=== PATIENT | female | born 1935 | race Caucasian/White ===

== ENCOUNTER 2016-03-30 22:28 | Emergency (ER) | payer MEDICARE ==
[~2016-03-30 22:28] MED LIST: /WARF25TA OR; ACET65TA OR; ASPI81TA7; ASPIRIN PO; AUGM500T34 OR; CHLORTRIMETON PO; COUM2TAB10 PO; FLAG500T PO; FLUT50SP; FLUTICASON; GLUCTAB PO; LEVO50TA2 OR; LEVOTHYROXINE PO; METAM; MILKSUS PO; MIRA3350 PO; MIRALEX OR; MUCI600T34 PO; MULTI PO; MULTIVIT OR; OMEP20TA7 OR; PERC5TAB8 OR; PERCOCET PO; PROAAER INH; SENO8.6T2 PO; SERT50TA2 OR; TUSSSUS2 OR; TYLE325T5 PO; VITA200016 PO; Vitamin D OR; [UNRECOGNIZED DRUG - CODE] EX; [UNRECOGNIZED DRUG - OTHER] PO; [UNRECOGNIZED DRUG - OTHER] SS; metamucil OR
[2016-03-30] MEDS ORDERED: KETOROLAC 30 MG/ML VIAL (J1885) As Ordered ONE (22:57)
[2016-03-31] MEDS ORDERED: MORPHINE 4 MG/ML 1ML SYRINGE As Ordered ONE (01:36)
--- NOTE | 2016-03-31 02:03 | EDDOCDS ---
Physician Documentation [facility] Name: Isabella Lombardi Age: 80 yrs Sex: Female : 1935 Arrival Date: 03/30/2016 Time: 22:28 Bed 11 Private MD: Harlan Feliz Disposition: 03/30/16 23:36 Discharged to Home/Self Care. Impression: Low back pain. - Condition is Stable. - Discharge Instructions: Back Pain, Adult. - Prescriptions for Naprosyn 500 mg Oral Tablet - take 1 tablet by ORAL route 2 times per day take with food; 30 tablet. Zanaflex 4 mg Oral Tablet - take 1 tablet by ORAL route every 8 hours As needed; 20 tablet. - Medication Reconciliation, Local Pharmacy Hours form. - Follow up: Harlan Feliz; When: 4 - 5 days; Reason: Recheck today's complaints, Continuance of care. - Problem is an acute exacerbation. - Symptoms are unchanged. Historical: - Allergies: Percocet; red ants; SULFA (SULFONAMIDES); Ditropan; Carafate; Propantheline [place]; Augmentin; Omeprazole; Zyrtec; - Home Meds: 1. levothyroxine 50 mcg Oral cap 1 cap once daily 2. fluticasone daily 3. albuterol sulfate 2.5 mg /3 mL (0.083 %) Inhl nebu 3 mL 3 times per day 4. meloxicam 15 mg oral tab 1 tab once daily 5. Vesicare 5 mg oral tab 6. aspirin 81 mg Oral tab 1 tab once daily 7. Vitamin D Oral 1,000 unit daily 8. lutein 20 mg oral cap 9. biotin 10,000 mcg oral cap daily 10. Acidophilus 500 million cell Oral tab 11. benefiber - PMHx: Hypothyroidism; Cataracts; pericardial cyst; Anxiety; Degenerative disc disease; - PSHx: hip replacement - bilateral; ortho surgery; back surgery; hip replacement- bilateral; Carpal Tunnel Repair- Bilateral; trigger finger; Hysterectomy; eyelid sx bilateral; - Social history: Smoking status: Patient states was never smoker of tobacco. No barriers to communication noted, The patient speaks fluent Tajik. - Family history: Not pertinent. - : The pt / caregiver states he / she is not on anticoagulants. Home medication list is obtained from the patient. - Exposure Risk Screening:: None identified. Vital Signs: 03/30 22:35 BP 146 / 87 LA; Pulse 92; Resp 18; Temp 96.5(O); Pulse Ox 95% on R/A; Weight 65.77 kg / af2 145 lbs (R); 23:39 BP 138 / 65; Pulse 108; Resp 18; Temp 96.9(O); Pulse Ox 95% on R/A; Pain 0/10; anni 03/31 02:00 BP 156 / 74; Pulse 107; Resp 20; Temp 97.2(TE); Pulse Ox 95% on R/A; Pain 0/10; jmv MDM: 03/30 22:46 ketorolac 30 mg IM once ordered. bhumika 22:46 Diazepam 10 mg IM once ordered. bhumika 03/31 00:01 Spine, Lumbosacral, Partial Ordered. EDMS 00:37 [facility] Payment Agreement was scanned into [employer] and attached to record. [facility] 00:[address] [facility] 01:29 morphine 4 mg IM once ordered. cs11 Administered Medications: 03/30 23:05 Drug: ketorolac 30 mg [ketorolac 30 mg/mL (1 mL) injection solution (1 mL)] Route: IM; af2 Site: left gluteus; 23:05 Drug: Diazepam 10 mg [diazepam 5 mg/mL injection syringe (2 mL)] Route: IM; Site: left af2 gluteus; 03/31 01:41 Drug: morphine 4 mg [morphine 4 mg/mL intravenous cartridge (1 mL)] Route: IM; Site: af2 left gluteus; Signatures: Dispatcher MedHost EDMS Rylan Wise, IT INFRASTRUCTURE MANAGER IT INFRASTRUCTURE MANAGER Jose Jacobo DO DO cs11 Marita Ivey RN RN af2 Bibi Ty The chart was reviewed and I authenticate all verbal orders and agree with the evaluation and treatment provided.Attachments: 00:37 [facility] Payment Agreement adelaide MTDD
--- NOTE | 2016-03-31 02:03 | EDDOCDS ---
Nurse's Notes [facility] Name: Isabella Lombardi Age: 80 yrs Sex: Female : 1935 Arrival Date: 03/30/2016 Time: 22:28 Bed 11 Private MD: Harlan Feliz Diagnosis: Low back pain Presentation: 03/30 22:36 Presenting complaint: EMS states: pt reports left lower back pain, states she was af2 taking nakul decorations down today- denies injury. Adult Sepsis Screening: The patient does not have new or worsening altered mentation. Patient's respiratory rate is less than 22. Systolic blood pressure is greater than 100. Patient has a qSOFA score of 0- Negative Sepsis Screen. Suicide/Homicide risk assessment- the patient denies having any suicidal and/or homicidal ideations and does not present with any other emotional, behavioral or mental health complaints. 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 Transition of care: patient was not received from another setting of care. 22:36 Acuity: DWAYNE Level 4 af2 22:36 Method Of Arrival: Ambulance af2 Triage Assessment: 22:44 General: Appears in no apparent distress, comfortable, Behavior is appropriate for age, af2 cooperative. Pain: Location: back Pain currently is 0 out of 10 on a pain scale. The patient is triaged at the bedside. See Assessment in Nurses Notes section of ED record. Neurological: Level of Consciousness is awake, alert, obeys commands, Oriented to person, place, time. Respiratory: Airway is patent Respiratory effort is even, unlabored. Derm: Skin is normal. Historical: - Allergies: Percocet; red ants; SULFA (SULFONAMIDES); Ditropan; Carafate; Propantheline [place]; Augmentin; Omeprazole; Zyrtec; - Home Meds: 1. levothyroxine 50 mcg Oral cap 1 cap once daily 2. fluticasone daily 3. albuterol sulfate 2.5 mg /3 mL (0.083 %) Inhl nebu 3 mL 3 times per day 4. meloxicam 15 mg oral tab 1 tab once daily 5. Vesicare 5 mg oral tab 6. aspirin 81 mg Oral tab 1 tab once daily 7. Vitamin D Oral 1,000 unit daily 8. lutein 20 mg oral cap 9. biotin 10,000 mcg oral cap daily 10. Acidophilus 500 million cell Oral tab 11. benefiber - PMHx: Hypothyroidism; Cataracts; pericardial cyst; Anxiety; Degenerative disc disease; - PSHx: hip replacement - bilateral; ortho surgery; back surgery; hip replacement- bilateral; Carpal Tunnel Repair- Bilateral; trigger finger; Hysterectomy; eyelid sx bilateral; - Social history: Smoking status: Patient states was never smoker of tobacco. No barriers to communication noted, The patient speaks fluent Qatari. - Family history: Not pertinent. - : The pt / caregiver states he / she is not on anticoagulants. Home medication list is obtained from the patient. - Exposure Risk Screening:: None identified. Screenin:45 Screening information is obtained from the patient. Fall risk: No risks identified. af2 Assistance ADL's: requires no assistance with activities of daily living. Abuse/DV Screen: The patient / caregiver reports he/she is: not in a situation that causes fear, pain or injury. Nutritional screening: No deficits noted. Advance Directives: There is an active DNR order. home support is adequate. Assessment: 03/31 00:02 General: see triage note. 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 . 01:17 General: pt out to desk and states "she's in so much pain, I'm scared to take af2 her home." provider notified and to bedside to examine pt. pt noted to be resting in upright position, no facial grimace or guarding noted.. Vital Signs: 03/30 22:35 BP 146 / 87 LA; Pulse 92; Resp 18; Temp 96.5(O); Pulse Ox 95% on R/A; Weight 65.77 kg af2 (R); 23:39 BP 138 / 65; Pulse 108; Resp 18; Temp 96.9(O); Pulse Ox 95% on R/A; Pain 0/10; anni 03/31 02:00 BP 156 / 74; Pulse 107; Resp 20; Temp 97.2(TE); Pulse Ox 95% on R/A; Pain 0/10; jmv Vitals: 03/30 22:35 Log In Time N/A - ambulance arrival. af2 ED Course: 22:29 Patient visited by Emani Aponte PCA. tmm1 22:29 Harlan Feliz is Private Physician. tmm1 22:29 Patient moved to Waiting tmm1 22:30 Marita Ivey RN is Primary Nurse. tmm1 22:30 Patient moved to 11 tmm1 22:31 [facility]. ke 22:31 Patient visited by Rylan Wise FNP. ke 22:31 Patient visited by Rylan Wise FNP. ke 22:37 Triage Initiated af2 22:45 Patient visited by Marita Ivey RN. af2 22:45 The patient / caregiver is instructed regarding the plan of care and ED course. Patient af2 has correct armband on for positive identification. Placed in gown. 22:45 No IV's were initiated during this patient's visit. No procedures done that require af2 assistance. 23:18 Patient visited by Rylan Wise FNP. ke 23:35 Harlan Feliz is Referral Physician. ke 23:39 Patient visited by Jeanne Lerma PCA. anni 03/31 00:04 Patient visited by Marita Ivey RN. af2 00:37 [facility] Payment Agreement was scanned into [employer] and attached to record. lja 01:19 Patient visited by Marita Ivey RN. af2 02:01 Patient visited by Yasmani Barksdale PCA. greer Administered Medications: 03/30 23:05 Drug: ketorolac 30 mg [ketorolac 30 mg/mL (1 mL) injection solution (1 mL)] Route: IM; af2 Site: left gluteus; 23:05 Drug: Diazepam 10 mg [diazepam 5 mg/mL injection syringe (2 mL)] Route: IM; Site: left af2 gluteus; 03/31 01:41 Drug: morphine 4 mg [morphine 4 mg/mL intravenous cartridge (1 mL)] Route: IM; Site: af2 left gluteus; Order Results: There are currently no results for this order. Outcome: 03/30 23:36 Discharge ordered by Provider. ke 03/31 02:01 Discharge Assessment: Patient awake, alert and oriented x 3. No cognitive and/or af2 functional deficits noted. Patient verbalized understanding of disposition instructions. patient administered narcotics - no. Discharge Assessment: Patient awake, alert and oriented x 3. No cognitive and/or functional deficits noted. Patient verbalized understanding of disposition instructions. patient administered narcotics - yes. Pt provided with safe discharge. The following High Risk Discharge criteria are identified: None. Discharged to home via wheelchair, with family. Condition: stable. Discharge instructions given to patient, significant other, Instructed on discharge instructions, follow up and referral plans. medication usage, no driving heavy equipment, no drinking with medication, Demonstrated understanding of instructions, medications, Pt was receptive of discharge instructions/ teaching. No special radiology studies were completed. Property :Personal belongings accompany Pt. 02:02 Patient left the ED. af2 Signatures: Rylan Wise, CHAMBER OF COMMERCE DIVISION MANAGER CHAMBER OF COMMERCE DIVISION MANAGER Jeanne Giang, GLOVE CUFFER GLOVE CUFFER anni Emani Aponte, GLOVE CUFFER GLOVE CUFFER tmm1 Marita Ivey,MATTEO RN af2 Arel, Yasmani Oseguera, GLOVE CUFFER GLOVE CUFFER jmv LILLIAN
--- NOTE | 2016-03-31 09:44 | REP ---
Clinical: Pain. Technique: AP, lateral, coned-down views of the lumbosacral spine. Findings: Alignment and lordosis is maintained. There is no evidence for acute fracture / compression injury or subluxation. Moderate to advanced multilevel degenerative changes include osteophytosis, endplate sclerosis, disc space narrowing and hypertrophic facet changes. Impression: Moderate to advanced multilevel degenerative changes. Signed by Alber Hernandez MD 03/31/2016 09:35 A
--- NOTE | 2016-04-02 03:04 | EDDOCDS ---
Nurse's Notes [facility] Name: Isabella Lombardi Age: 80 yrs Sex: Female : 1935 Arrival Date: 03/30/2016 Time: 22:28 Bed 11 Private MD: Harlan Feliz Diagnosis: Low back pain Presentation: 03/30 22:36 Presenting complaint: EMS states: pt reports left lower back pain, states she was af2 taking nakul decorations down today- denies injury. Adult Sepsis Screening: The patient does not have new or worsening altered mentation. Patient's respiratory rate is less than 22. Systolic blood pressure is greater than 100. Patient has a qSOFA score of 0- Negative Sepsis Screen. Suicide/Homicide risk assessment- the patient denies having any suicidal and/or homicidal ideations and does not present with any other emotional, behavioral or mental health complaints. Status: Patient is not a public message service supervisor or dependent. Transition of care: patient was not received from another setting of care. 22:36 Acuity: DWAYNE Level 4 af2 22:36 Method Of Arrival: Ambulance af2 Triage Assessment: 22:44 General: Appears in no apparent distress, comfortable, Behavior is appropriate for age, af2 cooperative. Pain: Location: back Pain currently is 0 out of 10 on a pain scale. The patient is triaged at the bedside. See Assessment in Nurses Notes section of ED record. Neurological: Level of Consciousness is awake, alert, obeys commands, Oriented to person, place, time. Respiratory: Airway is patent Respiratory effort is even, unlabored. Derm: Skin is normal. Historical: - Allergies: Percocet; red ants; SULFA (SULFONAMIDES); Ditropan; Carafate; Propantheline [place]; Augmentin; Omeprazole; Zyrtec; - Home Meds: 1. levothyroxine 50 mcg Oral cap 1 cap once daily 2. fluticasone daily 3. albuterol sulfate 2.5 mg /3 mL (0.083 %) Inhl nebu 3 mL 3 times per day 4. meloxicam 15 mg oral tab 1 tab once daily 5. Vesicare 5 mg oral tab 6. aspirin 81 mg Oral tab 1 tab once daily 7. Vitamin D Oral 1,000 unit daily 8. lutein 20 mg oral cap 9. biotin 10,000 mcg oral cap daily 10. Acidophilus 500 million cell Oral tab 11. benefiber - PMHx: Hypothyroidism; Cataracts; pericardial cyst; Anxiety; Degenerative disc disease; - PSHx: hip replacement - bilateral; ortho surgery; back surgery; hip replacement- bilateral; Carpal Tunnel Repair- Bilateral; trigger finger; Hysterectomy; eyelid sx bilateral; - Social history: Smoking status: Patient states was never smoker of tobacco. No barriers to communication noted, The patient speaks fluent Omani. - Family history: Not pertinent. - : The pt / caregiver states he / she is not on anticoagulants. Home medication list is obtained from the patient. - Exposure Risk Screening:: None identified. Screenin:45 Screening information is obtained from the patient. Fall risk: No risks identified. af2 Assistance ADL's: requires no assistance with activities of daily living. Abuse/DV Screen: The patient / caregiver reports he/she is: not in a situation that causes fear, pain or injury. Nutritional screening: No deficits noted. Advance Directives: There is an active DNR order. home support is adequate. Assessment: 03/31 00:02 General: see triage note. 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 . 01:17 General: pt out to desk and states "she's in so much pain, I'm scared to take af2 her home." provider notified and to bedside to examine pt. pt noted to be resting in upright position, no facial grimace or guarding noted.. Vital Signs: 03/30 22:35 BP 146 / 87 LA; Pulse 92; Resp 18; Temp 96.5(O); Pulse Ox 95% on R/A; Weight 65.77 kg af2 (R); 23:39 BP 138 / 65; Pulse 108; Resp 18; Temp 96.9(O); Pulse Ox 95% on R/A; Pain 0/10; anni 03/31 02:00 BP 156 / 74; Pulse 107; Resp 20; Temp 97.2(TE); Pulse Ox 95% on R/A; Pain 0/10; jmv Vitals: 03/30 22:35 Log In Time N/A - ambulance arrival. af2 ED Course: 22:29 Patient visited by Emani Aponte, CINDY. tmm1 22:29 Harlan Feliz is Private Physician. tmm1 22:29 Patient moved to Waiting tmm1 22:30 Marita Ivey RN is Primary Nurse. tmm1 22:30 Patient moved to 11 tmm1 22:31 [facility] ke 22:31 Patient visited by Rylan Wise FNP. ke 22:31 Patient visited by Rylan Wise FNP. ke 22:37 Triage Initiated af2 22:45 Patient visited by Marita Ivey RN. af2 22:45 The patient / caregiver is instructed regarding the plan of care and ED course. Patient af2 has correct armband on for positive identification. Placed in gown. 22:45 No IV's were initiated during this patient's visit. No procedures done that require af2 assistance. 23:18 Patient visited by Rylan Wise FNP. ke 23:35 Harlan Feliz is Referral Physician. ke 23:39 Patient visited by Jeanne Lerma PCA. anni 03/31 00:04 Patient visited by Marita Ivey RN. af2 00:37 [facility] Payment Agreement was scanned into [employer] and attached to record. lja 01:19 Patient visited by Marita Ivey RN. af2 02:01 Patient visited by Yasmani Barksdale PCA. greer 06:06 T-Sheet-- Draft Copy was scanned into [employer] and attached to record. hs2 09:56 Spine, Lumbosacral, Partial Returned. EDMS 14:20 PCR was scanned into [employer] and attached to record. gb Administered Medications: 03/30 23:05 Drug: ketorolac 30 mg [ketorolac 30 mg/mL (1 mL) injection solution (1 mL)] Route: IM; af2 Site: left gluteus; 23:05 Drug: Diazepam 10 mg [diazepam 5 mg/mL injection syringe (2 mL)] Route: IM; Site: left af2 gluteus; 03/31 01:41 Drug: morphine 4 mg [morphine 4 mg/mL intravenous cartridge (1 mL)] Route: IM; Site: af2 left gluteus; Order Results: Radiology Order: Spine, Lumbosacral, Partial Test: Spine, Lumbosacral, Partial REASON FOR EXAMINATION: pain; Clinical: Pain.; ; Technique: AP, lateral, coned-down views of the lumbosacral spine.; ; Findings: Alignment and lordosis is maintained. There is no evidence for acute; fracture / compression injury or subluxation. Moderate to advanced multilevel; degenerative changes include osteophytosis, endplate sclerosis, disc space; narrowing and hypertrophic facet changes.; ; Impression:; Moderate to advanced multilevel degenerative changes.; ; ; Signed by; Alber Hernandez MD 03/31/2016 09:35 A; Outcome: 03/30 23:36 Discharge ordered by Provider. bhumika 03/31 02:01 Discharge Assessment: Patient awake, alert and oriented x 3. No cognitive and/or af2 functional deficits noted. Patient verbalized understanding of disposition instructions. patient administered narcotics - no. Discharge Assessment: Patient awake, alert and oriented x 3. No cognitive and/or functional deficits noted. Patient verbalized understanding of disposition instructions. patient administered narcotics - yes. Pt provided with safe discharge. The following High Risk Discharge criteria are identified: None. Discharged to home via wheelchair, with family. Condition: stable. Discharge instructions given to patient, significant other, Instructed on discharge instructions, follow up and referral plans. medication usage, no driving heavy equipment, no drinking with medication, Demonstrated understanding of instructions, medications, Pt was receptive of discharge instructions/ teaching. No special radiology studies were completed. Property :Personal belongings accompany Pt. 02:02 Patient left the ED. af2 Signatures: Dispatcher MedHost EDMS Brooke Palma, Reg Reg gb Rylan Wise, PAPERHANGER SUPERVISOR PAPERHANGER SUPERVISOR Jeanne Giang, SOFT WORK CIGAR MACHINE OPERATOR SOFT WORK CIGAR MACHINE OPERATOR anni Emani Aponte, SOFT WORK CIGAR MACHINE OPERATOR SOFT WORK CIGAR MACHINE OPERATOR [email or web address] Marita Ivey,RN RN af2 Pawell, Jolie Mccoy, Reg Reg hs2 Yasmani Barksdale, SOFT WORK CIGAR MACHINE OPERATOR SOFT WORK CIGAR MACHINE OPERATOR jmv Chart Complete MTDD
--- NOTE | 2016-04-02 03:04 | EDDOCDS ---
Physician Documentation [facility] Name: Isabella Lombardi Age: 80 yrs Sex: Female : 1935 Arrival Date: 03/30/2016 Time: 22:28 Bed 11 Private MD: Harlan Feliz Disposition: 03/30/16 23:36 Discharged to Home/Self Care. Impression: Low back pain. - Condition is Stable. - Discharge Instructions: Back Pain, Adult. - Prescriptions for Naprosyn 500 mg Oral Tablet - take 1 tablet by ORAL route 2 times per day take with food; 30 tablet. Zanaflex 4 mg Oral Tablet - take 1 tablet by ORAL route every 8 hours As needed; 20 tablet. - Medication Reconciliation, Local Pharmacy Hours form. - Follow up: Harlan Feliz; When: 4 - 5 days; Reason: Recheck today's complaints, Continuance of care. - Problem is an acute exacerbation. - Symptoms are unchanged. Historical: - Allergies: Percocet; red ants; SULFA (SULFONAMIDES); Ditropan; Carafate; Propantheline [place]; Augmentin; Omeprazole; Zyrtec; - Home Meds: 1. levothyroxine 50 mcg Oral cap 1 cap once daily 2. fluticasone daily 3. albuterol sulfate 2.5 mg /3 mL (0.083 %) Inhl nebu 3 mL 3 times per day 4. meloxicam 15 mg oral tab 1 tab once daily 5. Vesicare 5 mg oral tab 6. aspirin 81 mg Oral tab 1 tab once daily 7. Vitamin D Oral 1,000 unit daily 8. lutein 20 mg oral cap 9. biotin 10,000 mcg oral cap daily 10. Acidophilus 500 million cell Oral tab 11. benefiber - PMHx: Hypothyroidism; Cataracts; pericardial cyst; Anxiety; Degenerative disc disease; - PSHx: hip replacement - bilateral; ortho surgery; back surgery; hip replacement- bilateral; Carpal Tunnel Repair- Bilateral; trigger finger; Hysterectomy; eyelid sx bilateral; - Social history: Smoking status: Patient states was never smoker of tobacco. No barriers to communication noted, The patient speaks fluent Vietnamese. - Family history: Not pertinent. - : The pt / caregiver states he / she is not on anticoagulants. Home medication list is obtained from the patient. - Exposure Risk Screening:: None identified. Vital Signs: 03/30 22:35 BP 146 / 87 LA; Pulse 92; Resp 18; Temp 96.5(O); Pulse Ox 95% on R/A; Weight 65.77 kg / af2 145 lbs (R); 23:39 BP 138 / 65; Pulse 108; Resp 18; Temp 96.9(O); Pulse Ox 95% on R/A; Pain 0/10; anni 03/31 02:00 BP 156 / 74; Pulse 107; Resp 20; Temp 97.2(TE); Pulse Ox 95% on R/A; Pain 0/10; jmv MDM: 03/30 22:46 ketorolac 30 mg IM once ordered. ke 22:46 Diazepam 10 mg IM once ordered. ke 03/31 00:01 Spine, Lumbosacral, Partial Ordered. EDMS 00:37 [facility] Payment Agreement was scanned into Snappy [employer] and attached to record. a 00:37 Financial registration complete. lja 01:29 morphine 4 mg IM once ordered. cs11 06:06 T-Sheet-- Draft Copy was scanned into Snappy shuttle and attached to record. hs2 14:20 PCR was scanned into [employer] and attached to record. gb Administered Medications: 03/30 23:05 Drug: ketorolac 30 mg [ketorolac 30 mg/mL (1 mL) injection solution (1 mL)] Route: IM; af2 Site: left gluteus; 23:05 Drug: Diazepam 10 mg [diazepam 5 mg/mL injection syringe (2 mL)] Route: IM; Site: left af2 gluteus; 03/31 01:41 Drug: morphine 4 mg [morphine 4 mg/mL intravenous cartridge (1 mL)] Route: IM; Site: af2 left gluteus; Signatures: Dispatcher MedHost EDMS Brooke Palma, Reg Reg gb Rylan Wise, COMPLIANCE PARALEGAL COMPLIANCE PARALEGAL Jose Jacobo DO DO cs11 Marita Ivey,MATTEO RN af2 Arel, Jolie Mccoy, Reg Reg hs2 The chart was reviewed and I authenticate all verbal orders and agree with the evaluation and treatment provided.Attachments: 00:37 [facility] Payment Agreement [facility] 06:06 T-Sheet-- Draft Copy hs2 Chart Complete MTDD
--- NOTE | 2016-04-02 03:04 | EDDOCDS ---
Physician Documentation [facility] Name: Isabella Lombardi Age: 80 yrs Sex: Female : 1935 Arrival Date: 03/30/2016 Time: 22:28 Bed 11 Private MD: Harlan Feliz Disposition: 03/30/16 23:36 Discharged to Home/Self Care. Impression: Low back pain. - Condition is Stable. - Discharge Instructions: Back Pain, Adult. - Prescriptions for Naprosyn 500 mg Oral Tablet - take 1 tablet by ORAL route 2 times per day take with food; 30 tablet. Zanaflex 4 mg Oral Tablet - take 1 tablet by ORAL route every 8 hours As needed; 20 tablet. - Medication Reconciliation, Local Pharmacy Hours form. - Follow up: Harlan Feliz; When: 4 - 5 days; Reason: Recheck today's complaints, Continuance of care. - Problem is an acute exacerbation. - Symptoms are unchanged. Historical: - Allergies: Percocet; red ants; SULFA (SULFONAMIDES); Ditropan; Carafate; Propantheline [place]; Augmentin; Omeprazole; Zyrtec; - Home Meds: 1. levothyroxine 50 mcg Oral cap 1 cap once daily 2. fluticasone daily 3. albuterol sulfate 2.5 mg /3 mL (0.083 %) Inhl nebu 3 mL 3 times per day 4. meloxicam 15 mg oral tab 1 tab once daily 5. Vesicare 5 mg oral tab 6. aspirin 81 mg Oral tab 1 tab once daily 7. Vitamin D Oral 1,000 unit daily 8. lutein 20 mg oral cap 9. biotin 10,000 mcg oral cap daily 10. Acidophilus 500 million cell Oral tab 11. benefiber - PMHx: Hypothyroidism; Cataracts; pericardial cyst; Anxiety; Degenerative disc disease; - PSHx: hip replacement - bilateral; ortho surgery; back surgery; hip replacement- bilateral; Carpal Tunnel Repair- Bilateral; trigger finger; Hysterectomy; eyelid sx bilateral; - Social history: Smoking status: Patient states was never smoker of tobacco. No barriers to communication noted, The patient speaks fluent Spanish. - Family history: Not pertinent. - : The pt / caregiver states he / she is not on anticoagulants. Home medication list is obtained from the patient. - Exposure Risk Screening:: None identified. Vital Signs: 03/30 22:35 BP 146 / 87 LA; Pulse 92; Resp 18; Temp 96.5(O); Pulse Ox 95% on R/A; Weight 65.77 kg / af2 145 lbs (R); 23:39 BP 138 / 65; Pulse 108; Resp 18; Temp 96.9(O); Pulse Ox 95% on R/A; Pain 0/10; anni 03/31 02:00 BP 156 / 74; Pulse 107; Resp 20; Temp 97.2(TE); Pulse Ox 95% on R/A; Pain 0/10; jmv MDM: 03/30 22:46 ketorolac 30 mg IM once ordered. ke 22:46 Diazepam 10 mg IM once ordered. ke 03/31 00:01 Spine, Lumbosacral, Partial Ordered. EDMS 00:37 [facility] Payment Agreement was scanned into [employer] and attached to record. a 00:37 Financial registration complete. lja 01:29 morphine 4 mg IM once ordered. cs11 06:06 T-Sheet-- Draft Copy was scanned into [employer] and attached to record. hs2 14:20 PCR was scanned into [employer] and attached to record. gb Administered Medications: 03/30 23:05 Drug: ketorolac 30 mg [ketorolac 30 mg/mL (1 mL) injection solution (1 mL)] Route: IM; af2 Site: left gluteus; 23:05 Drug: Diazepam 10 mg [diazepam 5 mg/mL injection syringe (2 mL)] Route: IM; Site: left af2 gluteus; 03/31 01:41 Drug: morphine 4 mg [morphine 4 mg/mL intravenous cartridge (1 mL)] Route: IM; Site: af2 left gluteus; Signatures: Dispatcher [employer] EDMS Brooke Palma, Reg Reg gb Rylan Wise, MACHINE SIZER MACHINE SIZER Jose Jacobo DO DO cs11 Marita Ivey,MATTEO RN af2 Arel, Jolie Mccoy, Reg Reg hs2 The chart was reviewed and I authenticate all verbal orders and agree with the evaluation and treatment provided.Attachments: 00:37 [facility] Payment Agreement [facility] 06:06 T-Sheet-- Draft Copy hs2 Chart Complete MTDD
== END 2016-03-31 02:02 | disposition home or self-care (01) ==
LOC: M ED 22:28
DX: S39.012A Strain of muscle, fascia and tendon of lower back, initial encounter (principal); X50.9XXA Other and unspecified overexertion or strenuous movements or postures, initial encounter; Y92.019 Unspecified place in single-family (private) house as the place of occurrence of the external cause; Y93.9 Activity, unspecified; Y99.9 Unspecified external cause status; E03.9 Hypothyroidism, unspecified; F41.9 Anxiety disorder, unspecified; M51.9 Unspecified thoracic, thoracolumbar and lumbosacral intervertebral disc disorder; Z96.643 Presence of artificial hip joint, bilateral; Z79.82 Long term (current) use of aspirin; Z79.899 Other long term (current) drug therapy; Z88.5 Allergy status to narcotic agent; Z91.89 Other specified personal risk factors, not elsewhere classified; Z88.2 Allergy status to sulfonamides; Z88.1 Allergy status to other antibiotic agents; Z88.8 Allergy status to other drugs, medicaments and biological substances
CPT/HCPCS: 72100; 96372; 99283; J1885; J3360

== ENCOUNTER → 2016-04-10 | Outpatient (CLI) | payer MEDICARE ==
[2016-04-10 12:52] LABS: COLLAGEN ADP 142 SECONDS (56-103)
== END ==
LOC: M LAB 10:47
PROVIDERS: ATTEND Ophthalmology
DX: H25.13 Age-related nuclear cataract, bilateral (principal)

== ENCOUNTER → 2016-06-10 | Outpatient (REF) | payer MEDICARE ==
[2016-06-10 14:04] LABS: MEAN CORPUSCULAR HEMOGLOBIN 33.3 pg (27.0-33.0); MEAN CORPUSCULAR VOLUME 97.8 fl (80.0-96.0); RED CELL DISTRIBUTION WIDTH 12.5 % (11.5-14.5); WHITE BLOOD COUNT 4.2 K/mm3 (4.0-10.0)
[2016-06-10 14:52] LABS: ALBUMIN 4.2 GM/DL (3.2-5.2); ALKALINE PHOSPHATASE 58 U/L (45-117); ALT/SGPT 15 U/L (12-78); ANION GAP 11 MEQ/L (8-16); AST/SGOT 14 U/L (15-37); BILIRUBIN,TOTAL 0.9 MG/DL (0.2-1.0); BLOOD UREA NITROGEN 11 MG/DL (7-18); CALCIUM LEVEL 9.2 MG/DL (8.8-10.2); CARBON DIOXIDE LEVEL 26 MEQ/L (21-32); CHLORIDE LEVEL 101 MEQ/L (98-107); CHOLESTEROL LEVEL 229 MG/DL (<200); GLOMERULAR FILTRATION RATE > 60.0 (>32); GLUCOSE, FASTING 83 MG/DL (83-110); POTASSIUM SERUM 4.2 MEQ/L (3.5-5.1); SODIUM LEVEL 138 MEQ/L (136-145); TRIGLYCERIDES LEVEL 68 MG/DL (<150)
== END ==
LOC: M SFHCPLAZ 09:23
PROVIDERS: ATTEND Internal Medicine
DX: K21.9 Gastro-esophageal reflux disease without esophagitis (principal); E78.00 Pure hypercholesterolemia, unspecified; E03.9 Hypothyroidism, unspecified

== ENCOUNTER → 2017-06-09 | Outpatient (REF) | payer MEDICARE ==
[2017-06-09 12:04] LABS: HEMATOCRIT 40.3 % (36.0-47.0); HEMOGLOBIN 13.8 g/dl (12.0-16.0); MEAN CORPUSCULAR HEMOGLOBIN 32.5 pg (27.0-33.0); MEAN CORPUSCULAR HGB CONC 34.2 g/dl (32.0-36.5); PLATELET COUNT, AUTOMATED 111 10^3/uL (150-450); RED BLOOD COUNT 4.24 10^6/uL (4.00-5.40); RED CELL DISTRIBUTION WIDTH 12.7 % (11.5-14.5); WHITE BLOOD COUNT 3.4 10^3/uL (4.0-10.0)
[2017-06-09 12:24] LABS: ALBUMIN 4.1 GM/DL (3.2-5.2); ALBUMIN/GLOBULIN RATIO 1.46 (1.00-1.93); ALKALINE PHOSPHATASE 54 U/L (45-117); ALT/SGPT 16 U/L (12-78); ANION GAP 10 MEQ/L (8-16); AST/SGOT 16 U/L (7-37); BILIRUBIN,TOTAL 0.7 MG/DL (0.2-1.0); BLOOD UREA NITROGEN 10 MG/DL (7-18); CALCIUM LEVEL 9.1 MG/DL (8.8-10.2); CARBON DIOXIDE LEVEL 27 MEQ/L (21-32); CHLORIDE LEVEL 101 MEQ/L (98-107); CHOLESTEROL LEVEL 214 MG/DL (<200); CHOLESTEROL RISK RATIO 2.118 (<5); CREATININE FOR GFR 0.78 MG/DL (0.55-1.30); GLOMERULAR FILTRATION RATE > 60.0 (>32); GLUCOSE, FASTING 88 MG/DL (70-100); HDL CHOLESTEROL 101 MG/DL (>40); LDL CHOLESTEROL 99.4 MG/DL (<100); NON-HDL-C 113 MG/DL; SODIUM LEVEL 138 MEQ/L (136-145); TOTAL PROTEIN 6.9 GM/DL (6.4-8.2); TRIGLYCERIDES LEVEL 68 MG/DL (<150)
[2017-06-09 12:44] LABS: TOTAL 25(OH) VITAMIN D 40.3 NG/ML (30.0-100.0)
== END ==
LOC: M SFHCPLAZ 09:08
DX: D69.6 Thrombocytopenia, unspecified (principal); E78.00 Pure hypercholesterolemia, unspecified; E03.9 Hypothyroidism, unspecified; E55.9 Vitamin D deficiency, unspecified
CPT/HCPCS: 84443

== ENCOUNTER → 2017-10-14 | Outpatient (CLI) | payer MEDICARE | LOC: M RAD 08:20 | DX: R10.11 Right upper quadrant pain (principal) | CPT/HCPCS: 76705 ==

== ENCOUNTER → 2017-10-19 | Outpatient (REF) | payer MEDICARE ==
[2017-10-22 15:06] LABS: BABESIOSIS LEVEL IGG <1:10 (Neg:<1:10); BABESIOSIS LEVEL IGM <1:10 (Neg:<1:10); Lyme Disease IgG/IgM Antibodie <0.91 ISR (0.00-0.90); Lyme Disease IgM Ab Quantitati <0.80 index (0.00-0.79)
== END ==
LOC: M SFHCPLAZ 09:31
DX: Z11.9 Encounter for screening for infectious and parasitic diseases, unspecified (principal); W57.XXXA Bitten or stung by nonvenomous insect and other nonvenomous arthropods, initial encounter; R21 Rash and other nonspecific skin eruption; Y92.89 Other specified places as the place of occurrence of the external cause
CPT/HCPCS: 86609

== ENCOUNTER → 2017-12-17 | Outpatient (REF) | payer MEDICARE ==
[2017-12-17 12:25] LABS: HEMATOCRIT 38.7 % (36.0-47.0); HEMOGLOBIN 13.2 g/dl (12.0-15.5); MEAN CORPUSCULAR HEMOGLOBIN 32.3 pg (27.0-33.0); MEAN CORPUSCULAR HGB CONC 34.1 g/dl (32.0-36.5); MEAN CORPUSCULAR VOLUME 94.6 fl (80.0-96.0); RED BLOOD COUNT 4.09 10^6/uL (4.00-5.40); RED CELL DISTRIBUTION WIDTH 12.9 % (11.5-14.5); WHITE BLOOD COUNT 3.8 10^3/uL (4.0-10.0)
[2017-12-17 12:30] LABS: IMMATURE PLATELET FRACTION % 10.4 % (0.0-9.6); PLATELET COUNT, AUTOMATED 96 10^3/uL (150-450)
[2017-12-17 13:51] LABS: ALBUMIN 4.1 GM/DL (3.2-5.2); ALBUMIN/GLOBULIN RATIO 1.64 (1.00-1.93); ALKALINE PHOSPHATASE 48 U/L (45-117); ALT/SGPT 19 U/L (12-78); ANION GAP 9 MEQ/L (8-16); AST/SGOT 12 U/L (7-37); BILIRUBIN,TOTAL 0.6 MG/DL (0.2-1.0); BLOOD UREA NITROGEN 7 MG/DL (7-18); CALCIUM LEVEL 9.3 MG/DL (8.8-10.2); CARBON DIOXIDE LEVEL 27 MEQ/L (21-32); CHLORIDE LEVEL 100 MEQ/L (98-107); CREATININE FOR GFR 0.63 MG/DL (0.55-1.30); GLOMERULAR FILTRATION RATE > 60.0 (>32); GLUCOSE, FASTING 88 MG/DL (70-100); POTASSIUM SERUM 4.4 MEQ/L (3.5-5.1); SODIUM LEVEL 136 MEQ/L (136-145); TOTAL PROTEIN 6.6 GM/DL (6.4-8.2)
== END ==
LOC: M SFHCPLAZ 09:36
DX: D69.6 Thrombocytopenia, unspecified (principal); G62.9 Polyneuropathy, unspecified
CPT/HCPCS: 80053

== ENCOUNTER → 2017-12-25 | Outpatient (CLI) | payer MEDICARE ==
[~2017-12-25] MED LIST changes: -/WARF25TA OR; -ACET65TA OR; -ASPI81TA7; -ASPIRIN PO; -AUGM500T34 OR; -CHLORTRIMETON PO; -COUM2TAB10 PO; -FLAG500T PO; -FLUT50SP; -FLUTICASON; +GASTROGRAFIN SOLUTION 30ML (Q9963) As Ordered; -GLUCTAB PO; +ISOVUE-370 76% 100ML VIAL (Q9967) As Ordered; -LEVO50TA2 OR; -LEVOTHYROXINE PO; -METAM; -MILKSUS PO; -MIRA3350 PO; -MIRALEX OR; -MUCI600T34 PO; -MULTI PO; -MULTIVIT OR; -OMEP20TA7 OR; -PERC5TAB8 OR; -PERCOCET PO; -PROAAER INH; -SENO8.6T2 PO; -SERT50TA2 OR; -TUSSSUS2 OR; -TYLE325T5 PO; -VITA200016 PO; -Vitamin D OR; -[UNRECOGNIZED DRUG - CODE] EX; -[UNRECOGNIZED DRUG - OTHER] PO; -[UNRECOGNIZED DRUG - OTHER] SS; -metamucil OR
== END ==
LOC: M RAD 12:27
DX: R63.4 Abnormal weight loss (principal); J84.10 Pulmonary fibrosis, unspecified; K76.89 Other specified diseases of liver; I51.7 Cardiomegaly; N28.1 Cyst of kidney, acquired; K57.30 Diverticulosis of large intestine without perforation or abscess without bleeding; Z96.643 Presence of artificial hip joint, bilateral
CPT/HCPCS: Q9963

== ENCOUNTER → 2018-05-03 | Outpatient (REF) | payer MEDICARE ==
[~2018-05-03] MED LIST changes: +/WARF25TA OR; +ACET65TA OR; +ASPI81TA7; +ASPIRIN PO; +AUGM500T34 OR; +CHLORTRIMETON PO; +COUM2TAB22 PO; +FLAG500T PO; +FLUT50SP; +FLUTICASON; -GASTROGRAFIN SOLUTION 30ML (Q9963) As Ordered; +GLUCTAB PO; -ISOVUE-370 76% 100ML VIAL (Q9967) As Ordered; +LEVO50TA2 OR; +LEVOTHYROXINE PO; +METAM; +MILK120011 PO; +MIRA3350 PO; +MIRALEX OR; +MUCI600T34 PO; +MULTI PO; +MULTIVIT OR; +OMEP20TA7 OR; +PERC5TAB8 OR; +PERCOCET PO; +PROAAER INH; +SENO8.6T5 PO; +SERT50TA2 OR; +TUSSSUS2 OR; +TYLE325T5 PO; +VITA200016 PO; +Vitamin D OR; +[UNRECOGNIZED DRUG - CODE] EX; +[UNRECOGNIZED DRUG - OTHER] PO; +[UNRECOGNIZED DRUG - OTHER] SS; +metamucil OR
== END ==
LOC: M SFHCPLAZ 10:13
PROVIDERS: ATTEND Dermatology
DX: H61.001 Unspecified perichondritis of right external ear (principal); L83 Acanthosis nigricans; D23.39 Other benign neoplasm of skin of other parts of face

== ENCOUNTER 2018-05-18 09:34 | Outpatient (RCR) | payer MEDICARE | END 2018-05-27 | LOC: M PT 09:34 | PROVIDERS: ATTEND Internal Medicine | DX: N32.81 Overactive bladder (principal) ==

== ENCOUNTER 2018-06-22 11:50 | Outpatient (RCR) | payer MEDICARE | END 2018-06-27 | LOC: M PT 11:50 | PROVIDERS: ATTEND Internal Medicine | DX: N32.81 Overactive bladder (principal) ==

== ENCOUNTER → 2018-10-05 | Outpatient (REF) | payer MEDICARE ==
[~2018-10-05] MED LIST changes: -/WARF25TA OR; +COUM1TAB18 OR
[2018-10-05 13:01] LABS: BASO % 0.3 % (0.0-1.0); EOS # 0.1 10^3/uL (0.0-0.50); EOS % 1.5 % (0.0-3.0); HEMATOCRIT 38.3 % (36.0-47.0); LYMPH # 0.9 10^3/uL (1.5-4.5); LYMPH % 28.7 % (24.0-44.0); MEAN CORPUSCULAR HGB CONC 33.9 g/dl (32.0-36.5); MEAN CORPUSCULAR VOLUME 97.2 fl (80.0-96.0); MONO # 0.8 10^3/uL (0.0-0.8); MONO % 24.1 % (0.0-5.0); NEUTROPHILS # 1.4 10^3/uL (1.8-7.7); NEUTROPHILS % 44.2 % (36.0-66.0); RED BLOOD COUNT 3.94 10^6/uL (4.00-5.40); WHITE BLOOD COUNT 3.2 10^3/uL (4.0-10.0)
[2018-10-05 13:02] LABS: PLATELET COUNT, AUTOMATED 92 10^3/uL (150-450)
[2018-10-05 14:06] LABS: ALT/SGPT 18 U/L (12-78); BILIRUBIN,TOTAL 0.8 MG/DL (0.2-1.0); BLOOD UREA NITROGEN 10 MG/DL (7-18); CALCIUM LEVEL 8.8 MG/DL (8.8-10.2); CARBON DIOXIDE LEVEL 26 MEQ/L (21-32); CHLORIDE LEVEL 101 MEQ/L (98-107); CHOLESTEROL LEVEL 197 MG/DL (<200); CHOLESTEROL RISK RATIO 1.807 (<5); GLOMERULAR FILTRATION RATE > 60.0 (>32); GLUCOSE, FASTING 93 MG/DL (70-100); HDL CHOLESTEROL 109 MG/DL (>40); LDL CHOLESTEROL 79 MG/DL (<100); NON-HDL-C 88 MG/DL; POTASSIUM SERUM 4.2 MEQ/L (3.5-5.1); SODIUM LEVEL 136 MEQ/L (136-145); TOTAL PROTEIN 6.8 GM/DL (6.4-8.2); TRIGLYCERIDES LEVEL 47 MG/DL (<150)
== END ==
LOC: M SFHCPLAZ 09:16
PROVIDERS: ATTEND Internal Medicine
DX: D69.6 Thrombocytopenia, unspecified (principal); E78.00 Pure hypercholesterolemia, unspecified; N32.81 Overactive bladder; E03.9 Hypothyroidism, unspecified

== ENCOUNTER → 2019-10-17 | Outpatient (REF) | payer MEDICARE ==
[2019-10-17 13:54] LABS: BASO % 0.5 % (0.0-1.0); EOS % 0.9 % (0.0-3.0); HEMATOCRIT 38.4 % (36.0-47.0); HEMOGLOBIN 13.2 g/dl (12.0-15.5); LYMPH % 23.3 % (24.0-44.0); MEAN CORPUSCULAR HEMOGLOBIN 31.9 pg (27.0-33.0); MEAN CORPUSCULAR HGB CONC 34.4 g/dl (32.0-36.5); MEAN CORPUSCULAR VOLUME 92.8 fl (80.0-96.0); MONO % 22.6 % (0.0-5.0); NEUTROPHILS # 2.2 10^3/uL (1.5-8.5); NEUTROPHILS % 51.3 % (36.0-66.0); RED BLOOD COUNT 4.14 10^6/uL (4.00-5.40); WHITE BLOOD COUNT 4.3 10^3/uL (4.0-10.0)
[2019-10-17 14:09] LABS: FOLATE 10.1 NG/ML; TOTAL 25(OH) VITAMIN D 37.2 NG/ML (30.0-100.0); VITAMIN B12 LEVEL > 2000 PG/ML
[2019-10-17 14:19] LABS: PLATELET COUNT, AUTOMATED 86 10^3/uL (150-450)
[2019-10-17 14:24] LABS: ALBUMIN 4.1 GM/DL (3.2-5.2); ALT/SGPT 18 U/L (12-78); BILIRUBIN,TOTAL 0.8 MG/DL (0.2-1.0); BLOOD UREA NITROGEN 7 MG/DL (7-18); CALCIUM LEVEL 8.8 MG/DL (8.8-10.2); CARBON DIOXIDE LEVEL 29 MEQ/L (21-32); CHLORIDE LEVEL 98 MEQ/L (98-107); CHOLESTEROL LEVEL 199 MG/DL (<200); CREATININE FOR GFR 0.69 MG/DL (0.55-1.30); GLOMERULAR FILTRATION RATE > 60.0 (>32); GLUCOSE, FASTING 98 MG/DL (70-100); HDL CHOLESTEROL 102 MG/DL (>40); LDL CHOLESTEROL 87 MG/DL (<100); NON-HDL-C 97 MG/DL; POTASSIUM SERUM 3.9 MEQ/L (3.5-5.1); SODIUM LEVEL 132 MEQ/L (136-145); TRIGLYCERIDES LEVEL 49 MG/DL (<150)
== END ==
LOC: M SFHCPLAZ 09:16
PROVIDERS: ATTEND Internal Medicine
DX: D69.6 Thrombocytopenia, unspecified (principal); E78.00 Pure hypercholesterolemia, unspecified; E03.9 Hypothyroidism, unspecified; E55.9 Vitamin D deficiency, unspecified; G62.9 Polyneuropathy, unspecified; Z79.899 Other long term (current) drug therapy

== ENCOUNTER → 2020-01-19 | Outpatient (CLI) | payer MEDICARE | LOC: M LABSMTC 13:31 | PROVIDERS: ATTEND Family Medicine | DX: Z11.59 Encounter for screening for other viral diseases (principal) | CPT/HCPCS: C9803; U0003 ==

== ENCOUNTER → 2020-08-06 | Outpatient (REF) | payer MEDICARE | LOC: M SFHCPLAZ 12:57 | PROVIDERS: ATTEND Physician Assistant | DX: N89.8 Other specified noninflammatory disorders of vagina (principal) | CPT/HCPCS: 87070; 87077; 87186; 87252; G0463 ==

== ENCOUNTER → 2020-10-09 | Outpatient (REF) | payer MEDICARE | LOC: M SFHCPLAZ 11:13 | PROVIDERS: ATTEND Internal Medicine | DX: E03.9 Hypothyroidism, unspecified (principal); E78.00 Pure hypercholesterolemia, unspecified; Z86.010 Personal history of colon polyps; Z11.59 Encounter for screening for other viral diseases ==

== ENCOUNTER → 2020-10-09 | Outpatient (CLI) | payer MEDICARE ==
[2020-10-09 13:39] LABS: BASO % 0.4 % (0.0-1.0); EOS % 0.4 % (0.0-3.0); HEMATOCRIT 38.6 % (36.0-47.0); HEMOGLOBIN 13.1 g/dl (12.0-15.5); LYMPH # 1.2 10^3/uL (1.5-5.0); LYMPH % 21.6 % (24.0-44.0); MEAN CORPUSCULAR HEMOGLOBIN 30.7 pg (27.0-33.0); MEAN CORPUSCULAR HGB CONC 33.9 g/dl (32.0-36.5); MEAN CORPUSCULAR VOLUME 90.4 fl (80.0-96.0); MONO # 1.4 10^3/uL (0.0-0.8); MONO % 26.5 % (2.0-8.0); NEUTROPHILS # 2.7 10^3/uL (1.5-8.5); NEUTROPHILS % 49.8 % (36.0-66.0); RED BLOOD COUNT 4.27 10^6/uL (4.00-5.40); WHITE BLOOD COUNT 5.3 10^3/uL (4.0-10.0)
[2020-10-09 13:42] LABS: PLATELET COUNT, AUTOMATED 77 10^3/uL (150-450)
[2020-10-09 14:18] LABS: ALBUMIN 4.1 GM/DL (3.2-5.2); ALT/SGPT 17 U/L (12-78); BILIRUBIN,TOTAL 0.8 MG/DL (0.2-1.0); BLOOD UREA NITROGEN 7 MG/DL (7-18); CALCIUM LEVEL 9.3 MG/DL (8.8-10.2); CARBON DIOXIDE LEVEL 27 MEQ/L (21-32); CHLORIDE LEVEL 97 MEQ/L (98-107); CHOLESTEROL LEVEL 199 MG/DL (<200); CHOLESTEROL RISK RATIO 2.186 (<5); CREATININE FOR GFR 0.52 MG/DL (0.55-1.30); GLOMERULAR FILTRATION RATE > 60.0 (>32); GLUCOSE, FASTING 85 MG/DL (70-100); HDL CHOLESTEROL 91 MG/DL (>40); LDL CHOLESTEROL 98 MG/DL (<100); NON-HDL-C 108 MG/DL; POTASSIUM SERUM 4.5 MEQ/L (3.5-5.1); SODIUM LEVEL 132 MEQ/L (136-145); TOTAL PROTEIN 6.8 GM/DL (6.4-8.2); TRIGLYCERIDES LEVEL 51 MG/DL (<150)
== END ==
LOC: M PLALAB 11:49
PROVIDERS: ATTEND Internal Medicine
DX: E78.00 Pure hypercholesterolemia, unspecified (principal); E03.9 Hypothyroidism, unspecified; Z86.010 Personal history of colon polyps; Z11.59 Encounter for screening for other viral diseases
CPT/HCPCS: 36415; 80053; 80061; 84443; 85025; 85049; 85055; G0463; G0472

== ENCOUNTER → 2021-03-18 | Outpatient (CLI) | payer MEDICARE ==
[2021-03-18 17:58] LABS: BASO % 0.6 % (0.0-1.0); EOS % 0.6 % (0.0-3.0); HEMATOCRIT 38.5 % (36.0-47.0); HEMOGLOBIN 12.8 g/dl (12.0-15.5); LYMPH % 20.9 % (24.0-44.0); MEAN CORPUSCULAR HEMOGLOBIN 29.7 pg (27.0-33.0); MEAN CORPUSCULAR HGB CONC 33.2 g/dl (32.0-36.5); MEAN CORPUSCULAR VOLUME 89.3 fl (80.0-96.0); MONO # 1.4 10^3/uL (0.0-0.8); MONO % 29.3 % (2.0-8.0); NEUTROPHILS # 2.2 10^3/uL (1.5-8.5); NEUTROPHILS % 47.3 % (36.0-66.0); RED BLOOD COUNT 4.31 10^6/uL (4.00-5.40); WHITE BLOOD COUNT 4.7 10^3/uL (4.0-10.0)
[2021-03-18 18:07] LABS: PLATELET COUNT, AUTOMATED 72 10^3/uL (150-450)
[2021-03-18 18:19] LABS: ALBUMIN 3.8 GM/DL (3.2-5.2); ALT/SGPT 16 U/L (12-78); BILIRUBIN,TOTAL 0.6 MG/DL (0.2-1.0); BLOOD UREA NITROGEN 13 MG/DL (7-18); CALCIUM LEVEL 9.5 MG/DL (8.8-10.2); CARBON DIOXIDE LEVEL 31 MEQ/L (21-32); CHLORIDE LEVEL 98 MEQ/L (98-107); CREATININE FOR GFR 0.59 MG/DL (0.55-1.30); GLOMERULAR FILTRATION RATE > 60.0 (>32); GLUCOSE, FASTING 105 MG/DL (70-100); POTASSIUM SERUM 4.5 MEQ/L (3.5-5.1); SODIUM LEVEL 133 MEQ/L (136-145); TOTAL PROTEIN 6.7 GM/DL (6.4-8.2)
== END ==
LOC: M PLALAB 14:17
PROVIDERS: ATTEND Internal Medicine
DX: E78.00 Pure hypercholesterolemia, unspecified (principal)

== ENCOUNTER 2021-06-05 16:28 | Emergency (ER) | payer MEDICARE ==
[~2021-06-05] VITALS: Ht 162.6 cm; Wt 54.1 kg
[2021-06-05] MEDS ORDERED: OXYB5TAB10 (16:42)
[2021-06-05 17:44] LABS: HEMATOCRIT 37.5 % (36.0-47.0); HEMOGLOBIN 12.7 g/dl (12.0-15.5); MEAN CORPUSCULAR HEMOGLOBIN 29.4 pg (27.0-33.0); MEAN CORPUSCULAR HGB CONC 33.9 g/dl (32.0-36.5); MEAN CORPUSCULAR VOLUME 86.8 fl (80.0-96.0); RED BLOOD COUNT 4.32 10^6/uL (4.00-5.40)
[2021-06-05 17:46] LABS: PLATELET COUNT, AUTOMATED 85 10^3/uL (150-450)
[2021-06-05 17:56] LABS: D-DIMER QUANT 631.69 ng/ml (<500)
[2021-06-05 18:06] LABS: ATYPICAL LYMPH 7 % (0-5); BASOPHILS 1 % (0-1); EOSINOPHILS 2 % (0-3); LYMPHOCYTES 20 % (16-44); MONOCYTES 21 % (0-5); NEUTROPHILS 49 % (28-66); PLATELET ESTIMATE DECREASED (NORMAL)
[2021-06-05 18:10] LABS: C REACTIVE PROTEIN QUANTITATIV 0.45 MG/DL (0.00-0.30)
[2021-06-05 18:19] LABS: INR 0.95; PROTHROMBIN TIME 13.1 SECONDS (12.7-14.5)
[2021-06-05 18:20] LABS: PARTIAL THROMBOPLASTIN TIME 30.7 SECONDS (25.9-37.0)
[2021-06-05 18:26] LABS: ERYTHROCYTE SEDIMENTATION RATE 8 mm/hr (0-30)
[2021-06-05 18:49] LABS: ALBUMIN 3.7 GM/DL (3.2-5.2); ALT/SGPT 16 U/L (12-78); BILIRUBIN,TOTAL 0.5 MG/DL (0.2-1.0); BLOOD UREA NITROGEN 9 MG/DL (7-18); CALCIUM LEVEL 8.8 MG/DL (8.8-10.2); CARBON DIOXIDE LEVEL 28 MEQ/L (21-32); CHLORIDE LEVEL 97 MEQ/L (98-107); CREATININE FOR GFR 0.51 MG/DL (0.55-1.30); GLOMERULAR FILTRATION RATE > 60.0 (>32); GLUCOSE, FASTING 85 MG/DL (70-100); SODIUM LEVEL 132 MEQ/L (136-145); TOTAL PROTEIN 6.8 GM/DL (6.4-8.2)
[2021-06-05] MEDS ORDERED: ISOVUE-370 76% 100ML VIAL As Ordered ONE (19:01)
[2021-06-05 19:25] VITALS: BP 156/68
== END 2021-06-05 20:17 | disposition home or self-care (01) ==
LOC: M ED 16:28
DX: R22.42 Localized swelling, mass and lump, left lower limb (principal); M79.662 Pain in left lower leg; S83.207A Unspecified tear of unspecified meniscus, current injury, left knee, initial encounter; X58.XXXA Exposure to other specified factors, initial encounter; Y92.9 Unspecified place or not applicable; Y93.9 Activity, unspecified; Y99.9 Unspecified external cause status; D69.6 Thrombocytopenia, unspecified; R91.8 Other nonspecific abnormal finding of lung field; E03.9 Hypothyroidism, unspecified; K21.9 Gastro-esophageal reflux disease without esophagitis; J45.909 Unspecified asthma, uncomplicated; G89.29 Other chronic pain; M54.50 Low back pain, unspecified; M79.7 Fibromyalgia; Z88.1 Allergy status to other antibiotic agents; Z88.2 Allergy status to sulfonamides; Z88.8 Allergy status to other drugs, medicaments and biological substances; Z79.899 Other long term (current) drug therapy; Z79.890 Hormone replacement therapy
CPT/HCPCS: 36415; 71275; 80047; 80053; 85025; 85049; 85055; 85379; 85610; 85652; 85730; 86140; 93971; 99284; Q9967

== ENCOUNTER 2021-08-08 16:52 | Emergency (ER) | payer MEDICARE ==
[~2021-08-08] VITALS: Ht 162.6 cm; Wt 53.2 kg
[~2021-08-08 16:52] MED LIST changes: +OXYB5TAB10
[2021-08-08] MEDS ORDERED: ceFAZolin SOD 1 GM in D5W MINI-BAG PLUS 50 ML IV ONE (18:40)
[2021-08-08] MEDS ORDERED: BOOSTRIX/ADACEL VACCINE (DIPHTH/PERTUSS/ACELL/TETANUS) 0.5ML SYR IM ONE (18:40)
[2021-08-08 19:07] LABS: HEMATOCRIT 34.9 % (36.0-47.0); HEMOGLOBIN 11.9 g/dl (12.0-15.5); MEAN CORPUSCULAR HEMOGLOBIN 30.1 pg (27.0-33.0); MEAN CORPUSCULAR HGB CONC 34.1 g/dl (32.0-36.5); MEAN CORPUSCULAR VOLUME 88.1 fl (80.0-96.0); RED BLOOD COUNT 3.96 10^6/uL (4.00-5.40); WHITE BLOOD COUNT 5.2 10^3/uL (4.0-10.0)
[2021-08-08 19:27] LABS: BLOOD UREA NITROGEN 11 MG/DL (7-18); CALCIUM LEVEL 8.4 MG/DL (8.8-10.2); CARBON DIOXIDE LEVEL 27 MEQ/L (21-32); CHLORIDE LEVEL 95 MEQ/L (98-107); CREATININE FOR GFR 0.55 MG/DL (0.55-1.30); GLOMERULAR FILTRATION RATE > 60.0 (>32); GLUCOSE, FASTING 86 MG/DL (70-100); SODIUM LEVEL 127 MEQ/L (136-145)
[2021-08-08 19:38] LABS: PLATELET COUNT, AUTOMATED 63 10^3/uL (150-450)
[2021-08-08 19:42] LABS: RSV AMPLIFICATION NEGATIVE (NEGATIVE)
[2021-08-08 20:30] VITALS: BP 132/61
[2021-08-08 20:35] LABS: ATYPICAL LYMPH 21 % (0-5); BASOPHILS 1 % (0-1); LYMPHOCYTES 27 % (16-44); NEUTROPHILS 51 % (28-66)
[2021-08-08 20:36] LABS: PLATELET ESTIMATE MARKED DECREASE (NORMAL)
== END 2021-08-08 20:47 | disposition short-term general hospital (02) ==
LOC: M ED 16:52
DX: S02.119A Unspecified fracture of occiput, initial encounter for closed fracture (principal); W01.0XXA Fall on same level from slipping, tripping and stumbling without subsequent striking against object, initial encounter; Y92.524 Gas station as the place of occurrence of the external cause; Y93.9 Activity, unspecified; Y99.9 Unspecified external cause status; M43.12 Spondylolisthesis, cervical region; E03.9 Hypothyroidism, unspecified; Z88.1 Allergy status to other antibiotic agents; Z88.2 Allergy status to sulfonamides; Z88.8 Allergy status to other drugs, medicaments and biological substances; Z79.899 Other long term (current) drug therapy; Z79.01 Long term (current) use of anticoagulants; Z79.890 Hormone replacement therapy
CPT/HCPCS: 70450; 72125; 80048; 85025; 85049; 85055; 87631; 90471; 90715; 93005; 96365; 99285; J0690

== ENCOUNTER → 2021-08-19 | Outpatient (CLI) | payer MEDICARE ==
[2021-08-19 14:20] LABS: BLOOD UREA NITROGEN 11 MG/DL (7-18); CALCIUM LEVEL 9.4 MG/DL (8.8-10.2); CARBON DIOXIDE LEVEL 30 MEQ/L (21-32); CHLORIDE LEVEL 99 MEQ/L (98-107); CREATININE FOR GFR 0.61 MG/DL (0.55-1.30); GLOMERULAR FILTRATION RATE > 60.0 (>32); GLUCOSE, FASTING 93 MG/DL (70-100); POTASSIUM SERUM 4.1 MEQ/L (3.5-5.1); SODIUM LEVEL 134 MEQ/L (136-145)
[2021-08-19 14:21] LABS: FOLATE 3.7 NG/ML; VITAMIN B12 LEVEL 643 PG/ML
== END ==
LOC: M PLALAB 10:39
PROVIDERS: ATTEND Internal Medicine
DX: E87.1 Hypo-osmolality and hyponatremia (principal)

== ENCOUNTER → 2021-10-07 | Outpatient (CLI) | payer MEDICARE ==
[2021-10-07 15:30] LABS: BASO % 0.3 % (0.0-1.0); EOS % 0.3 % (0.0-3.0); HEMATOCRIT 35.3 % (36.0-47.0); HEMOGLOBIN 11.8 g/dl (12.0-15.5); LYMPH # 1.1 10^3/uL (1.5-5.0); LYMPH % 17.2 % (24.0-44.0); MEAN CORPUSCULAR HEMOGLOBIN 29.3 pg (27.0-33.0); MEAN CORPUSCULAR HGB CONC 33.4 g/dl (32.0-36.5); MEAN CORPUSCULAR VOLUME 87.6 fl (80.0-96.0); MONO # 1.3 10^3/uL (0.0-0.8); MONO % 21.8 % (2.0-8.0); NEUTROPHILS # 3.6 10^3/uL (1.5-8.5); NEUTROPHILS % 59.6 % (36.0-66.0); RED BLOOD COUNT 4.03 10^6/uL (4.00-5.40); WHITE BLOOD COUNT 6.1 10^3/uL (4.0-10.0)
[2021-10-07 16:03] LABS: PLATELET COUNT, AUTOMATED 60 10^3/uL (150-450)
[2021-10-07 20:08] LABS: BLOOD UREA NITROGEN 8 MG/DL (7-18); CARBON DIOXIDE LEVEL 26 MEQ/L (21-32); CHLORIDE LEVEL 100 MEQ/L (98-107); CREATININE FOR GFR 0.59 MG/DL (0.55-1.30); GLOMERULAR FILTRATION RATE > 60.0 (>32); GLUCOSE, FASTING 87 MG/DL (70-100); POTASSIUM SERUM 4.1 MEQ/L (3.5-5.1); SODIUM LEVEL 131 MEQ/L (136-145)
[2021-10-07 20:09] LABS: ALBUMIN 3.9 GM/DL (3.2-5.2); ALT/SGPT 12 U/L (12-78); BILIRUBIN,TOTAL 0.5 MG/DL (0.2-1.0); CHOLESTEROL LEVEL 157 MG/DL (<200); CHOLESTEROL RISK RATIO 1.784 (<5); HDL CHOLESTEROL 88 MG/DL (>40); LDL CHOLESTEROL 57 MG/DL (<100); NON-HDL-C 69 MG/DL; TOTAL PROTEIN 6.8 GM/DL (6.4-8.2); TRIGLYCERIDES LEVEL 59 MG/DL (<150)
== END ==
LOC: M PLALAB 13:37
PROVIDERS: ATTEND Internal Medicine
DX: D69.6 Thrombocytopenia, unspecified (principal); E78.00 Pure hypercholesterolemia, unspecified

== ENCOUNTER → 2021-10-24 | Outpatient (CLI) | payer MEDICARE | LOC: M WUC 11:31 | PROVIDERS: ATTEND Physician Assistant | DX: S23.41XA Sprain of ribs, initial encounter (principal) ==

== ENCOUNTER 2021-11-11 11:29 | Outpatient (RCR) | payer MEDICARE | END 2021-11-27 | LOC: M PT 11:29 | PROVIDERS: ATTEND Internal Medicine Hematology | DX: R53.1 Weakness (principal) ==

== ENCOUNTER → 2021-11-19 | Outpatient (REF) | payer MEDICARE | LOC: M SFHCPLAZ 16:56 | PROVIDERS: ATTEND Physician Assistant | DX: M71.319 Other bursal cyst, unspecified shoulder (principal) ==

== ENCOUNTER → 2021-12-05 | Outpatient (CLI) | payer MEDICARE | LOC: M SOG 11:03 | PROVIDERS: ATTEND Orthopaedic Surgery | DX: M25.511 Pain in right shoulder (principal) ==

== ENCOUNTER → 2022-01-06 | Outpatient (CLI) | payer MEDICARE ==
[2022-01-06 13:30] LABS: BASO % 0.4 % (0.0-1.0); EOS % 0.2 % (0.0-3.0); HEMOGLOBIN 12.2 g/dl (12.0-15.5); LYMPH # 0.8 10^3/uL (1.5-5.0); LYMPH % 17.7 % (24.0-44.0); MEAN CORPUSCULAR HEMOGLOBIN 29.3 pg (27.0-33.0); MEAN CORPUSCULAR HGB CONC 32.1 g/dl (32.0-36.5); MEAN CORPUSCULAR VOLUME 91.3 fl (80.0-96.0); MONO % 33.8 % (2.0-8.0); NEUTROPHILS # 2.2 10^3/uL (1.5-8.5); NEUTROPHILS % 47.3 % (36.0-66.0); RED BLOOD COUNT 4.16 10^6/uL (4.00-5.40); WHITE BLOOD COUNT 4.7 10^3/uL (4.0-10.0)
[2022-01-06 13:34] LABS: MONO # 1.6 10^3/uL (0.0-0.8); PLATELET COUNT, AUTOMATED 61 10^3/uL (150-450)
[2022-01-06 14:50] LABS: HEPATITIS B SURFACE ANTIBODY NEGATIVE (POSITIVE); HEPATITIS C VIRUS ABY INDEX < 0.0 INDEX (<0.8); HIV 1&2 SCREEN CENTAUR NEGATIVE (NEGATIVE)
== END ==
LOC: M PLALAB 10:40
PROVIDERS: ATTEND Internal Medicine Hematology
DX: D69.6 Thrombocytopenia, unspecified (principal)

== ENCOUNTER → 2022-04-11 | Outpatient (REF) | payer MEDICARE ==
[2022-04-11 17:20] LABS: SOURCE, BODY FLUID OTHER; SYNOVIAL FLUID COLOR RED (COLORLESS)
== END ==
LOC: M LAB REF 16:41
PROVIDERS: ATTEND Orthopaedic Surgery
DX: M13.811 Other specified arthritis, right shoulder (principal); M75.121 Complete rotator cuff tear or rupture of right shoulder, not specified as traumatic; M71.30 Other bursal cyst, unspecified site

== ENCOUNTER → 2022-04-25 | Outpatient (CLI) | payer MEDICARE | LOC: M SOG 09:23 | PROVIDERS: ATTEND Orthopaedic Surgery | DX: R22.31 Localized swelling, mass and lump, right upper limb (principal); M13.811 Other specified arthritis, right shoulder ==

== ENCOUNTER → 2022-04-29 | Outpatient (CLI) | payer MEDICARE | LOC: M PLALAB 10:59 | PROVIDERS: ATTEND Internal Medicine Hematology | DX: M50.321 Other cervical disc degeneration at C4-C5 level (principal); M50.322 Other cervical disc degeneration at C5-C6 level; M50.323 Other cervical disc degeneration at C6-C7 level; M47.892 Other spondylosis, cervical region ==

== ENCOUNTER → 2022-05-20 | Outpatient (REF) | payer MEDICARE ==
[2022-05-20 16:17] LABS: APPEARANCE, URINE HAZY (CLEAR); BACTERIA, URINE AUTO 3+ (NEGATIVE); BILIRUBIN, URINE AUTO NEGATIVE (NEGATIVE); BLOOD, URINE BLOOD 1+ (NEGATIVE); COLOR, URINE YELLOW (YELLOW); GLUCOSE, URINE (UA) AUTO NEGATIVE (NEGATIVE); KETONE, URINE AUTO TRACE mg/dL (NEGATIVE); LEUKOCYTE ESTERASE, URINE AUTO 3+ (NEGATIVE); MUCUS, URINE SMALL (NEGATIVE); NITRITE, URINE AUTO POSITIVE (NEGATIVE); PROTEIN, URINE AUTO NEGATIVE (NEGATIVE); RBC, URINE AUTO 7 /HPF (0-3); SQUAMOUS EPITHELIAL CELL UR AU 3 /HPF (0-6); WBC, URINE AUTO 175 /HPF (0-3)
== END ==
LOC: M SMT 15:34
PROVIDERS: ATTEND Nurse Practitioner Women's Health
DX: R35.0 Frequency of micturition (principal)

== ENCOUNTER → 2022-10-27 | Outpatient (REF) | payer MEDICARE ==
[2022-10-27 16:06] LABS: SOURCE, BODY FLUID OTHER; SYNOVIAL FLUID COLOR RED (COLORLESS)
[2022-10-27 19:04] LABS: CRYSTALS, BODY FLUID NONE SEEN (NONE SEEN); SOURCE, BODY FLUID CRYSTALS OTHER
== END ==
LOC: M LAB REF 15:05
PROVIDERS: ATTEND Orthopaedic Surgery
DX: M19.011 Primary osteoarthritis, right shoulder (principal); M75.121 Complete rotator cuff tear or rupture of right shoulder, not specified as traumatic

== ENCOUNTER → 2023-02-12 | Outpatient (CLI) | payer MEDICARE ==
[~2023-02-12] MED LIST changes: -OXYB5TAB10; +OXYB5TAB11
== END ==
LOC: M PLAIMG 16:22
PROVIDERS: ATTEND Student in an Organized Health Care Education/Training Program
DX: I51.7 Cardiomegaly (principal); J40 Bronchitis, not specified as acute or chronic

== ENCOUNTER → 2023-09-02 | Outpatient (CLI) | payer MEDICARE ==
[~2023-09-02] MED LIST changes: -OXYB5TAB11; +OXYB5TAB14
[2023-09-02 18:21] LABS: C REACTIVE PROTEIN QUANTITATIV < 0.40 MG/DL (<1.0)
[2023-09-02 18:22] LABS: ALBUMIN 4.2 G/DL (3.2-5.2); ALKALINE PHOSPHATASE 66 U/L (46-116); ALT/SGPT 10 U/L (7.0-40); AST/SGOT < 8 U/L (<34); BILIRUBIN,TOTAL 0.6 MG/DL (0.3-1.2); BLOOD UREA NITROGEN 15 MG/DL (9-23); CALCIUM LEVEL 9.3 MG/DL (8.3-10.6); CARBON DIOXIDE LEVEL 28 MMOL/L (20-31); CHLORIDE LEVEL 100 MMOL/L (98-107); GLOMERULAR FILTRATION RATE > 60.0 (>32); GLUCOSE, FASTING 85 MG/DL (74-106); SODIUM LEVEL 136 MMOL/L (136-145); TOTAL PROTEIN 6.8 G/DL (5.7-8.2)
[2023-09-02 18:23] LABS: TOTAL 25(OH) VITAMIN D 7.1 NG/ML (20.0-100.0)
[2023-09-02 18:24] LABS: FREE T4 0.87 NG/DL (0.89-1.76); VITAMIN B12 LEVEL 369 PG/ML (211-911)
[2023-09-02 18:50] LABS: HEMOGLOBIN A1c 5.1 % (4.0-6.0)
[2023-09-02 19:34] LABS: HEMATOCRIT 38.5 % (36.0-47.0); HEMOGLOBIN 12.6 g/dl (12.0-15.5); MEAN CORPUSCULAR HEMOGLOBIN 30.1 pg (27.0-33.0); MEAN CORPUSCULAR HGB CONC 32.7 g/dl (32.0-36.5); MEAN CORPUSCULAR VOLUME 91.9 fl (80.0-96.0); RED BLOOD COUNT 4.19 10^6/uL (4.00-5.40); WHITE BLOOD COUNT 10.1 10^3/uL (4.0-10.0)
[2023-09-02 19:36] LABS: PLATELET COUNT, AUTOMATED 48 10^3/uL (150-450)
[2023-09-03 10:34] LABS: CREATININE, URINE 89.5 MG/DL; MAU/CREAT RATIO 17.8 MCG/MG (0.0-30.0)
== END ==
LOC: M PLALAB 14:40
PROVIDERS: ATTEND Internal Medicine Hematology
DX: E03.9 Hypothyroidism, unspecified (principal); Z79.899 Other long term (current) drug therapy

== ENCOUNTER → 2023-09-09 | Outpatient (CLI) | payer MEDICARE ==
[2023-09-09 13:53] LABS: BASO % 0.5 % (0.0-1.0); EOS % 0.4 % (0.0-3.0); HEMATOCRIT 36.7 % (36.0-47.0); HEMOGLOBIN 12.1 g/dl (12.0-15.5); LYMPH # 0.9 10^3/uL (1.5-5.0); LYMPH % 10.9 % (24.0-44.0); MEAN CORPUSCULAR HEMOGLOBIN 30.3 pg (27.0-33.0); NEUTROPHILS # 4.4 10^3/uL (1.5-8.5); NEUTROPHILS % 54.5 % (36.0-66.0); RED BLOOD COUNT 3.99 10^6/uL (4.00-5.40); THYROID STIMULATING HORMONE 2.679 uIU/ML (0.55-4.78); TOTAL 25(OH) VITAMIN D 7.4 NG/ML (20.0-100.0)
[2023-09-09 13:55] LABS: C REACTIVE PROTEIN QUANTITATIV < 0.40 MG/DL (<1.0); VITAMIN B12 LEVEL 366 PG/ML (211-911)
[2023-09-09 13:56] LABS: FREE T4 1.33 NG/DL (0.89-1.76)
[2023-09-09 13:57] LABS: ALBUMIN 3.9 G/DL (3.2-5.2); ALKALINE PHOSPHATASE 62 U/L (46-116); ALT/SGPT 10 U/L (7.0-40); AST/SGOT < 8 U/L (<34); BILIRUBIN,TOTAL 0.7 MG/DL (0.3-1.2); BLOOD UREA NITROGEN 8 MG/DL (9-23); CALCIUM LEVEL 8.8 MG/DL (8.3-10.6); CARBON DIOXIDE LEVEL 31 MMOL/L (20-31); CHLORIDE LEVEL 100 MMOL/L (98-107); CHOLESTEROL LEVEL 142 MG/DL (<200); CHOLESTEROL RISK RATIO 1.95 (<5); CREATININE FOR GFR 0.43 MG/DL (0.55-1.30); GLOMERULAR FILTRATION RATE > 60.0 (>32); GLUCOSE, FASTING 90 MG/DL (74-106); HDL CHOLESTEROL 72.7 MG/DL (>40); LDL CHOLESTEROL 61.5 MG/DL (<100); NON-HDL-C 69.3 MG/DL; POTASSIUM SERUM 4.1 MMOL/L (3.5-5.1); SODIUM LEVEL 135 MMOL/L (136-145); TOTAL PROTEIN 6.3 G/DL (5.7-8.2); TRIGLYCERIDES LEVEL 39 MG/DL (<150)
[2023-09-09 14:26] LABS: HEMOGLOBIN A1c 5.1 % (4.0-6.0)
[2023-09-09 15:00] LABS: MONO # 2.7 10^3/uL (0.0-0.8)
[2023-09-09 15:01] LABS: PLATELET COUNT, AUTOMATED 42 10^3/uL (150-450)
[2023-09-09 15:02] LABS: MONO % 33.3 % (2.0-8.0)
== END ==
LOC: M PLALAB 09:03
PROVIDERS: ATTEND Internal Medicine Hematology
DX: E03.9 Hypothyroidism, unspecified (principal)

== ENCOUNTER 2023-10-04 05:27 | Emergency (ER) | payer MEDICARE ==
[~2023-10-04] VITALS: Ht 157.5 cm; Wt 60.0 kg
[2023-10-04 06:39] LABS: HEMATOCRIT 35.4 % (36.0-47.0); HEMOGLOBIN 12.1 g/dl (12.0-15.5); MEAN CORPUSCULAR HEMOGLOBIN 30.3 pg (27.0-33.0); MEAN CORPUSCULAR HGB CONC 34.2 g/dl (32.0-36.5); MEAN CORPUSCULAR VOLUME 88.7 fl (80.0-96.0); RED BLOOD COUNT 3.99 10^6/uL (4.00-5.40); WHITE BLOOD COUNT 8.5 10^3/uL (4.0-10.0)
[2023-10-04 06:42] LABS: PLATELET COUNT, AUTOMATED 38 10^3/uL (150-450)
[2023-10-04 06:50] LABS: INR 1.14; PROTHROMBIN TIME 14.3 SECONDS (12.5-14.5)
[2023-10-04 06:53] LABS: CK-MB VALUE MASS 2.8 NG/ML (<3.6); LIPASE 19 U/L (12-53)
[2023-10-04 06:55] LABS: ALBUMIN 3.7 G/DL (3.2-5.2); ALKALINE PHOSPHATASE 60 U/L (46-116); ALT/SGPT 13 U/L (7.0-40); AST/SGOT 13 U/L (<34); BILIRUBIN,DIRECT 0.2 MG/DL (<0.4); BILIRUBIN,TOTAL 0.7 MG/DL (0.3-1.2); BLOOD UREA NITROGEN 6 MG/DL (9-23); CALCIUM LEVEL 8.4 MG/DL (8.3-10.6); CARBON DIOXIDE LEVEL 28 MMOL/L (20-31); CHLORIDE LEVEL 97 MMOL/L (98-107); CREATININE FOR GFR 0.42 MG/DL (0.55-1.30); GLOMERULAR FILTRATION RATE > 60.0 (>32); GLUCOSE, FASTING 86 MG/DL (74-106); POTASSIUM SERUM 3.5 MMOL/L (3.5-5.1); SODIUM LEVEL 131 MMOL/L (136-145)
[2023-10-04 06:56] LABS: CPK CREATINE PHOSPHOKINASE 83 U/L (34-145); MB/CK RELATIVE INDEX 3.37 (< OR =4)
[2023-10-04 07:12] LABS: ATYPICAL LYMPH 14 % (0-5); BASOPHILS 1 % (0-1); LYMPHOCYTES 10 % (16-44); METAMYELOCYTES 2 % (0-0); MONOCYTES 17 % (0-5); NEUTROPHILS 56 % (28-66)
[2023-10-04 07:13] LABS: PLATELET ESTIMATE MARKED DECREASE (NORMAL)
[2023-10-04 07:14] LABS: ANISOCYTOSIS 1+
[2023-10-04] MEDS: ACETAMINOPHEN 500 MG TAB PO ONE (07:38)
[2023-10-04] MEDS ORDERED: FOLI400T13 PO (08:40)
[2023-10-04] MEDS ORDERED: RABE1TAB4 PO (08:40)
[2023-10-04] MEDS ORDERED: ALBU8.5H INH (08:40)
[2023-10-04] MEDS ORDERED: APAP325T4 PO (08:40)
[2023-10-04] MEDS ORDERED: COLE1TAB PO (08:40)
[2023-10-04] MEDS ORDERED: MYRB50TA PO ×2 (08:40)
[2023-10-04] MEDS ORDERED: FLUT15.820 (08:40)
[2023-10-04] MEDS ORDERED: SYNT75TA PO (08:42)
[2023-10-04] MEDS ORDERED: HOME MED LIST COMPLETE! XX SCH (08:45)
[2023-10-04] MEDS: traMADol 50 MG TAB PO ONE (10:10)
[2023-10-04] MEDS ORDERED: ISOVUE-370 76% 100ML VIAL As Ordered ONE (11:20)
[2023-10-04 13:33] VITALS: BP 126/56; TEMP 97.6; O2SAT 95
== END 2023-10-04 13:40 | disposition home or self-care (01) ==
LOC: M ED 05:27
DX: R07.9 Chest pain, unspecified (principal); K21.9 Gastro-esophageal reflux disease without esophagitis; E78.00 Pure hypercholesterolemia, unspecified; E03.9 Hypothyroidism, unspecified; I44.0 Atrioventricular block, first degree; I45.10 Unspecified right bundle-branch block; I44.4 Left anterior fascicular block; I45.81 Long QT syndrome; Z88.2 Allergy status to sulfonamides; Z88.1 Allergy status to other antibiotic agents; Z88.8 Allergy status to other drugs, medicaments and biological substances; Z79.1 Long term (current) use of non-steroidal anti-inflammatories (NSAID); Z79.51 Long term (current) use of inhaled steroids; Z79.899 Other long term (current) drug therapy
CPT/HCPCS: 36415; 71045; 71275; 80048; 80076; 82550; 82553; 83690; 84484; 85025; 85049; 85055; 85610; 93005; 93041; 94760; 99285; Q9967

== ENCOUNTER → 2023-10-28 | Outpatient (CLI) | payer MEDICARE ==
[~2023-10-28] MED LIST changes: +ALBU8.5H INH; +APAP325T4 PO; +COLE1TAB PO; +FLUT15.820; +FOLI400T13 PO; +MYRB50TA PO; +RABE1TAB4 PO; +SYNT75TA PO
[2023-10-28 12:46] LABS: BASO % 0.6 % (0.0-1.0); EOS % 0.3 % (0.0-3.0); HEMATOCRIT 37.8 % (36.0-47.0); HEMOGLOBIN 12.5 g/dl (12.0-15.5); LYMPH # 0.9 10^3/uL (1.5-5.0); MEAN CORPUSCULAR HEMOGLOBIN 30.1 pg (27.0-33.0); MEAN CORPUSCULAR HGB CONC 33.1 g/dl (32.0-36.5); MEAN CORPUSCULAR VOLUME 91.1 fl (80.0-96.0); MONO # 2.5 10^3/uL (0.0-0.8); NEUTROPHILS # 3.4 10^3/uL (1.5-8.5); NEUTROPHILS % 49.8 % (36.0-66.0); RED BLOOD COUNT 4.15 10^6/uL (4.00-5.40); WHITE BLOOD COUNT 6.9 10^3/uL (4.0-10.0)
[2023-10-28 12:51] LABS: PLATELET COUNT, AUTOMATED 46 10^3/uL (150-450)
== END ==
LOC: M PLALAB 09:26
PROVIDERS: ATTEND Internal Medicine Hematology
DX: D69.6 Thrombocytopenia, unspecified (principal)

== ENCOUNTER → 2023-11-11 | Outpatient (CLI) | payer MEDICARE ==
[2023-11-11 16:01] LABS: BASO # 0.1 10^3/uL (0.0-0.2); BASO % 0.6 % (0.0-1.0); EOS % 0.2 % (0.0-3.0); HEMATOCRIT 38.5 % (36.0-47.0); HEMOGLOBIN 12.8 g/dl (12.0-15.5); LYMPH # 1.4 10^3/uL (1.5-5.0); LYMPH % 14.6 % (24.0-44.0); MEAN CORPUSCULAR HEMOGLOBIN 30.3 pg (27.0-33.0); MEAN CORPUSCULAR HGB CONC 33.2 g/dl (32.0-36.5); MONO % 29.8 % (2.0-8.0); NEUTROPHILS # 5.1 10^3/uL (1.5-8.5); NEUTROPHILS % 54.5 % (36.0-66.0); RED BLOOD COUNT 4.23 10^6/uL (4.00-5.40); WHITE BLOOD COUNT 9.4 10^3/uL (4.0-10.0)
[2023-11-11 16:06] LABS: MONO # 2.8 10^3/uL (0.0-0.8); PLATELET COUNT, AUTOMATED 48 10^3/uL (150-450)
== END ==
LOC: M PLALAB 13:14
PROVIDERS: ATTEND Internal Medicine Hematology
DX: D69.3 Immune thrombocytopenic purpura (principal)

== ENCOUNTER → 2023-11-25 | Outpatient (CLI) | payer MEDICARE ==
[2023-11-25 13:12] LABS: BASO % 0.6 % (0.0-1.0); EOS % 0.4 % (0.0-3.0); HEMATOCRIT 37.1 % (36.0-47.0); HEMOGLOBIN 12.1 g/dl (12.0-15.5); LYMPH # 0.6 10^3/uL (1.5-5.0); LYMPH % 11.9 % (24.0-44.0); MEAN CORPUSCULAR HEMOGLOBIN 29.6 pg (27.0-33.0); MEAN CORPUSCULAR HGB CONC 32.6 g/dl (32.0-36.5); MEAN CORPUSCULAR VOLUME 90.7 fl (80.0-96.0); MONO % 58.7 % (2.0-8.0); NEUTROPHILS # 1.4 10^3/uL (1.5-8.5); RED BLOOD COUNT 4.09 10^6/uL (4.00-5.40); WHITE BLOOD COUNT 4.9 10^3/uL (4.0-10.0)
[2023-11-25 14:12] LABS: MONO # 2.9 10^3/uL (0.0-0.8); PLATELET COUNT, AUTOMATED 38 10^3/uL (150-450)
== END ==
LOC: M PLALAB 11:18
PROVIDERS: ATTEND Internal Medicine Hematology
DX: D69.3 Immune thrombocytopenic purpura (principal)

== ENCOUNTER → 2023-12-09 | Outpatient (CLI) | payer MEDICARE ==
[2023-12-09 14:59] LABS: BASO # 0.1 10^3/uL (0.0-0.2); BASO % 0.7 % (0.0-1.0); EOS % 0.1 % (0.0-3.0); HEMATOCRIT 36.8 % (36.0-47.0); HEMOGLOBIN 12.3 g/dl (12.0-15.5); LYMPH # 1.1 10^3/uL (1.5-5.0); LYMPH % 14.3 % (24.0-44.0); MEAN CORPUSCULAR HEMOGLOBIN 30.1 pg (27.0-33.0); MEAN CORPUSCULAR HGB CONC 33.4 g/dl (32.0-36.5); MEAN CORPUSCULAR VOLUME 90.2 fl (80.0-96.0); MONO % 25.9 % (2.0-8.0); NEUTROPHILS # 4.4 10^3/uL (1.5-8.5); NEUTROPHILS % 58.3 % (36.0-66.0); RED BLOOD COUNT 4.08 10^6/uL (4.00-5.40); WHITE BLOOD COUNT 7.5 10^3/uL (4.0-10.0)
[2023-12-09 15:03] LABS: PLATELET COUNT, AUTOMATED 56 10^3/uL (150-450)
== END ==
LOC: M PLALAB 13:09
PROVIDERS: ATTEND Internal Medicine Hematology
DX: D69.3 Immune thrombocytopenic purpura (principal)

== ENCOUNTER → 2023-12-23 | Outpatient (CLI) | payer MEDICARE ==
[2023-12-23 18:11] LABS: BASO # 0.1 10^3/uL (0.0-0.2); BASO % 0.5 % (0.0-1.0); EOS % 0.4 % (0.0-3.0); HEMATOCRIT 37.5 % (36.0-47.0); HEMOGLOBIN 12.4 g/dl (12.0-15.5); LYMPH # 1.8 10^3/uL (1.5-5.0); LYMPH % 18.9 % (24.0-44.0); MEAN CORPUSCULAR HEMOGLOBIN 30.2 pg (27.0-33.0); MEAN CORPUSCULAR HGB CONC 33.1 g/dl (32.0-36.5); MEAN CORPUSCULAR VOLUME 91.5 fl (80.0-96.0); MONO # 2.2 10^3/uL (0.0-0.8); MONO % 23.4 % (2.0-8.0); NEUTROPHILS # 5.3 10^3/uL (1.5-8.5); NEUTROPHILS % 56.4 % (36.0-66.0); WHITE BLOOD COUNT 9.4 10^3/uL (4.0-10.0)
[2023-12-23 18:13] LABS: PLATELET COUNT, AUTOMATED 41 10^3/uL (150-450)
== END ==
LOC: M PLALAB 14:55
PROVIDERS: ATTEND Internal Medicine Hematology
DX: D69.3 Immune thrombocytopenic purpura (principal)

== ENCOUNTER → 2024-01-06 | Outpatient (CLI) | payer MEDICARE ==
[2024-01-06 15:07] LABS: BASO % 0.4 % (0.0-1.0); EOS # 0.1 10^3/uL (0.0-0.5); EOS % 0.9 % (0.0-3.0); HEMOGLOBIN 12.4 g/dl (12.0-15.5); LYMPH # 1.2 10^3/uL (1.5-5.0); LYMPH % 15.4 % (24.0-44.0); MEAN CORPUSCULAR HEMOGLOBIN 30.7 pg (27.0-33.0); MEAN CORPUSCULAR HGB CONC 33.5 g/dl (32.0-36.5); MEAN CORPUSCULAR VOLUME 91.6 fl (80.0-96.0); MONO # 2.2 10^3/uL (0.0-0.8); MONO % 29.6 % (2.0-8.0); NEUTROPHILS % 53.3 % (36.0-66.0); RED BLOOD COUNT 4.04 10^6/uL (4.00-5.40); WHITE BLOOD COUNT 7.5 10^3/uL (4.0-10.0)
[2024-01-06 15:09] LABS: PLATELET COUNT, AUTOMATED 47 10^3/uL (150-450)
== END ==
LOC: M PLALAB 13:02
PROVIDERS: ATTEND Internal Medicine Hematology
DX: D69.6 Thrombocytopenia, unspecified (principal)

== ENCOUNTER → 2024-01-20 | Outpatient (CLI) | payer MEDICARE ==
[2024-01-20 15:43] LABS: BASO # 0.1 10^3/uL (0.0-0.2); BASO % 0.8 % (0.0-1.0); EOS # 0.1 10^3/uL (0.0-0.5); EOS % 1.5 % (0.0-3.0); HEMATOCRIT 36.7 % (36.0-47.0); LYMPH # 1.4 10^3/uL (1.5-5.0); LYMPH % 17.5 % (24.0-44.0); MEAN CORPUSCULAR HEMOGLOBIN 29.9 pg (27.0-33.0); MEAN CORPUSCULAR HGB CONC 32.7 g/dl (32.0-36.5); MEAN CORPUSCULAR VOLUME 91.3 fl (80.0-96.0); MONO # 2.3 10^3/uL (0.0-0.8); MONO % 28.7 % (2.0-8.0); NEUTROPHILS % 51.1 % (36.0-66.0); RED BLOOD COUNT 4.02 10^6/uL (4.00-5.40); WHITE BLOOD COUNT 7.8 10^3/uL (4.0-10.0)
[2024-01-20 15:53] LABS: PLATELET COUNT, AUTOMATED 48 10^3/uL (150-450)
== END ==
LOC: M PLALAB 13:10
PROVIDERS: ATTEND Internal Medicine Hematology
DX: D69.6 Thrombocytopenia, unspecified (principal)

== ENCOUNTER → 2024-02-03 | Outpatient (CLI) | payer MEDICARE ==
[2024-02-03 15:44] LABS: BASO # 0.1 10^3/uL (0.0-0.2); BASO % 0.7 % (0.0-1.0); EOS # 0.2 10^3/uL (0.0-0.5); EOS % 2.4 % (0.0-3.0); HEMATOCRIT 36.9 % (36.0-47.0); HEMOGLOBIN 12.1 g/dl (12.0-15.5); LYMPH # 1.2 10^3/uL (1.5-5.0); LYMPH % 16.2 % (24.0-44.0); MEAN CORPUSCULAR HEMOGLOBIN 30.2 pg (27.0-33.0); MEAN CORPUSCULAR HGB CONC 32.8 g/dl (32.0-36.5); MONO # 2.3 10^3/uL (0.0-0.8); MONO % 30.2 % (2.0-8.0); NEUTROPHILS # 3.8 10^3/uL (1.5-8.5); NEUTROPHILS % 50.1 % (36.0-66.0); RED BLOOD COUNT 4.01 10^6/uL (4.00-5.40); WHITE BLOOD COUNT 7.6 10^3/uL (4.0-10.0)
[2024-02-03 15:54] LABS: PLATELET COUNT, AUTOMATED 43 10^3/uL (150-450)
== END ==
LOC: M PLALAB 13:03
PROVIDERS: ATTEND Internal Medicine Hematology
DX: D69.6 Thrombocytopenia, unspecified (principal)

== ENCOUNTER → 2024-02-17 | Outpatient (CLI) | payer MEDICARE ==
[2024-02-17 15:44] LABS: BASO # 0.1 10^3/uL (0.0-0.2); BASO % 0.6 % (0.0-1.0); EOS # 0.2 10^3/uL (0.0-0.5); EOS % 2.8 % (0.0-3.0); HEMATOCRIT 37.7 % (36.0-47.0); HEMOGLOBIN 12.9 g/dl (12.0-15.5); LYMPH # 1.2 10^3/uL (1.5-5.0); LYMPH % 15.3 % (24.0-44.0); MEAN CORPUSCULAR HEMOGLOBIN 30.9 pg (27.0-33.0); MEAN CORPUSCULAR HGB CONC 34.2 g/dl (32.0-36.5); MEAN CORPUSCULAR VOLUME 90.4 fl (80.0-96.0); MONO # 2.5 10^3/uL (0.0-0.8); MONO % 31.7 % (2.0-8.0); NEUTROPHILS # 3.9 10^3/uL (1.5-8.5); NEUTROPHILS % 49.3 % (36.0-66.0); RED BLOOD COUNT 4.17 10^6/uL (4.00-5.40); WHITE BLOOD COUNT 7.9 10^3/uL (4.0-10.0)
[2024-02-17 15:47] LABS: PLATELET COUNT, AUTOMATED 52 10^3/uL (150-450)
== END ==
LOC: M PLALAB 13:25
PROVIDERS: ATTEND Internal Medicine Hematology
DX: D69.6 Thrombocytopenia, unspecified (principal)

== ENCOUNTER → 2024-03-02 | Outpatient (CLI) | payer MEDICARE ==
[2024-03-02 15:21] LABS: BASO # 0.1 10^3/uL (0.0-0.2); BASO % 0.4 % (0.0-1.0); EOS # 0.3 10^3/uL (0.0-0.5); EOS % 2.6 % (0.0-3.0); HEMATOCRIT 39.2 % (36.0-47.0); LYMPH % 7.8 % (24.0-44.0); MEAN CORPUSCULAR HGB CONC 33.2 g/dl (32.0-36.5); MEAN CORPUSCULAR VOLUME 90.5 fl (80.0-96.0); MONO % 36.1 % (2.0-8.0); NEUTROPHILS # 6.8 10^3/uL (1.5-8.5); NEUTROPHILS % 52.6 % (36.0-66.0); RED BLOOD COUNT 4.33 10^6/uL (4.00-5.40)
[2024-03-02 15:22] LABS: MONO # 4.7 10^3/uL (0.0-0.8)
[2024-03-02 15:23] LABS: PLATELET COUNT, AUTOMATED 47 10^3/uL (150-450)
== END ==
LOC: M PLALAB 13:31
PROVIDERS: ATTEND Internal Medicine Hematology
DX: D69.6 Thrombocytopenia, unspecified (principal)

== ENCOUNTER → 2024-03-03 | Outpatient (CLI) | payer MEDICARE | LOC: M PLALAB 10:41 | PROVIDERS: ATTEND Internal Medicine Hematology | DX: D72.821 Monocytosis (symptomatic) (principal); D69.6 Thrombocytopenia, unspecified ==

== ENCOUNTER → 2024-03-04 | Outpatient (CLI) | payer MEDICARE | LOC: M WUC 14:52 | PROVIDERS: ATTEND Physician Assistant | DX: J20.9 Acute bronchitis, unspecified (principal); I51.9 Heart disease, unspecified; R05.9 Cough, unspecified ==

== ENCOUNTER → 2024-03-18 | Outpatient (CLI) | payer MEDICARE ==
[2024-03-18 17:38] LABS: BASO # 0.1 10^3/uL (0.0-0.2); BASO % 0.5 % (0.0-1.0); EOS # 0.2 10^3/uL (0.0-0.5); EOS % 1.4 % (0.0-3.0); HEMATOCRIT 37.8 % (36.0-47.0); HEMOGLOBIN 12.4 g/dl (12.0-15.5); LYMPH # 1.6 10^3/uL (1.5-5.0); LYMPH % 12.6 % (24.0-44.0); MEAN CORPUSCULAR HEMOGLOBIN 29.9 pg (27.0-33.0); MEAN CORPUSCULAR HGB CONC 32.8 g/dl (32.0-36.5); MEAN CORPUSCULAR VOLUME 91.1 fl (80.0-96.0); MONO % 27.2 % (2.0-8.0); NEUTROPHILS # 7.3 10^3/uL (1.5-8.5); NEUTROPHILS % 57.7 % (36.0-66.0); RED BLOOD COUNT 4.15 10^6/uL (4.00-5.40); WHITE BLOOD COUNT 12.6 10^3/uL (4.0-10.0)
[2024-03-18 18:27] LABS: MONO # 3.4 10^3/uL (0.0-0.8); PLATELET COUNT, AUTOMATED 64 10^3/uL (150-450)
[2024-03-23 15:16] LABS: 25-HYDROXY VITAMIN D2 < 8 pg/mL; 25-HYDROXY VITAMIN D3 34 pg/mL; VITAMIN D 1 25 DIHYDROXY 34 pg/mL (18-72)
== END ==
LOC: M PLALAB 15:41
PROVIDERS: ATTEND Student in an Organized Health Care Education/Training Program
DX: E55.9 Vitamin D deficiency, unspecified (principal); D69.6 Thrombocytopenia, unspecified

== ENCOUNTER → 2024-04-14 | Outpatient (CLI) | payer MEDICARE ==
[2024-04-14 13:41] LABS: BASO # 0.1 10^3/uL (0.0-0.2); EOS # 0.2 10^3/uL (0.0-0.5); EOS % 2.3 % (0.0-3.0); HEMATOCRIT 38.9 % (36.0-47.0); HEMOGLOBIN 12.8 g/dl (12.0-15.5); LYMPH # 1.1 10^3/uL (1.5-5.0); LYMPH % 14.7 % (24.0-44.0); MEAN CORPUSCULAR HEMOGLOBIN 30.2 pg (27.0-33.0); MEAN CORPUSCULAR HGB CONC 32.9 g/dl (32.0-36.5); MEAN CORPUSCULAR VOLUME 91.7 fl (80.0-96.0); MONO % 38.2 % (2.0-8.0); NEUTROPHILS # 3.2 10^3/uL (1.5-8.5); NEUTROPHILS % 43.5 % (36.0-66.0); RED BLOOD COUNT 4.24 10^6/uL (4.00-5.40); WHITE BLOOD COUNT 7.3 10^3/uL (4.0-10.0)
[2024-04-14 13:42] LABS: MONO # 2.8 10^3/uL (0.0-0.8); PLATELET COUNT, AUTOMATED 47 10^3/uL (150-450)
== END ==
LOC: M PLALAB 11:45
PROVIDERS: ATTEND Internal Medicine Hematology
DX: D69.6 Thrombocytopenia, unspecified (principal)

== ENCOUNTER 2024-09-29 20:06 | Observation (INO) | payer MEDICARE ==
[~2024-09-29] VITALS: Ht 157.5 cm; Wt 46.6 kg
[~2024-09-29 20:06] MED LIST changes: +CEFD1CAP9 PO; +CEFD300CAP PO; -FLUT15.820; +FLUT15.820 NARES; +MICR1TAB5 PO; -RABE1TAB4 PO; +RABE1TAB5 PO
[2024-09-29 21:12] LABS: PLATELET COUNT, AUTOMATED 114 10^3/uL (150-450)
[2024-09-29] MEDS ORDERED: HOME MED LIST COMPLETE! XX SCH (21:25)
[2024-09-29 21:30] LABS: CALCIUM LEVEL 8.8 MG/DL (8.3-10.6); CARBON DIOXIDE LEVEL 26 MMOL/L (20-31); CHLORIDE LEVEL 96 MMOL/L (98-107); CREATININE FOR GFR 0.38 MG/DL (0.55-1.30); GLOMERULAR FILTRATION RATE > 90.0 (>32); POTASSIUM SERUM 3.5 MMOL/L (3.5-5.1); SODIUM LEVEL 135 MMOL/L (136-145)
[2024-09-29 21:36] LABS: EOSINOPHILS 1 % (0-3); LYMPHOCYTES 11 % (16-44); MONOCYTES 21 % (0-5); NEUTROPHILS 67 % (28-66)
[2024-09-29 21:38] LABS: PLATELET ESTIMATE DECREASED (NORMAL)
[2024-09-30] MEDS ORDERED: MOM 30 ML SUSPENSION UDC PO PRN (01:05)
[2024-09-30] MEDS ORDERED: ALBUTEROL 90 MCG/ACT 8 GM HFA INHALER INH PRN (01:05)
[2024-09-30] MEDS: ACETAMINOPHEN 325 MG TAB PO PRN (01:56)
[2024-09-30 03:41] VITALS: BP 104/54; TEMP 97.3; O2SAT 98
[2024-09-30] MEDS: LEVOTHYROXINE 75 MCG TABLET (0.075 MG) PO SCH (06:07)
[2024-09-30] MEDS: FOLIC ACID 1 MG TAB PO SCH (08:20)
[2024-09-30] MEDS: DOCUSATE SODIUM 100 MG CAPSULE PO SCH (08:20)
[2024-09-30] MEDS: FLUTICASONE PROPIONATE 0.05% NASAL SPRAY 16 GM NARES SCH (08:20)
[2024-09-30 08:40] LABS: CALCIUM LEVEL 8.2 MG/DL (8.3-10.6); CARBON DIOXIDE LEVEL 29 MMOL/L (20-31); CHLORIDE LEVEL 97 MMOL/L (98-107); CREATININE FOR GFR 0.36 MG/DL (0.55-1.30); GLOMERULAR FILTRATION RATE > 90.0 (>32); POTASSIUM SERUM 3.8 MMOL/L (3.5-5.1); SODIUM LEVEL 135 MMOL/L (136-145)
[2024-09-30 08:57] LABS: PLATELET COUNT, AUTOMATED 96 10^3/uL (150-450)
[2024-09-30 09:28] LABS: ATYPICAL LYMPH 2 % (0-5); BASOPHILS 1 % (0-1); EOSINOPHILS 1 % (0-3); LYMPHOCYTES 7 % (16-44); MONOCYTES 19 % (0-5); NEUTROPHILS 68 % (28-66)
[2024-09-30 09:29] LABS: PLATELET ESTIMATE DECREASED (NORMAL)
[2024-09-30 11:35] VITALS: BP 109/64; TEMP 97.3; O2SAT 96
[2024-10-01 04:00] VITALS: BP 105/59; TEMP 97.7; O2SAT 98
[2024-10-01 06:52] VITALS: TEMP 97.7
[2024-10-01 16:00] VITALS: BP 109/57; TEMP 97.4; O2SAT 89
[2024-10-01 23:06] VITALS: BP 105/62; TEMP 97.4; O2SAT 94
[2024-10-02 04:55] VITALS: BP 100/59; TEMP 97.5; O2SAT 93
[2024-10-02 06:08] VITALS: BP 100/59; TEMP 97.5; O2SAT 93
[2024-10-02 22:42] VITALS: BP 105/60; TEMP 97.5; O2SAT 94
[2024-10-03 06:51] VITALS: BP 100/58; TEMP 97.2; O2SAT 95
[2024-10-04 04:00] VITALS: BP 103/63; TEMP 97.3; O2SAT 95
[2024-10-04 14:00] VITALS: BP 103/63; TEMP 97.3; O2SAT 95
[2024-10-05 04:00] VITALS: BP 95/53; TEMP 97.3; O2SAT 91
[2024-10-05] MEDS: RAMELTEON 8 MG TAB PO SCH (20:25)
[2024-10-06 04:00] VITALS: BP 93/54; TEMP 96.8; O2SAT 95
[2024-10-07 03:59] VITALS: BP 107/57; TEMP 97.2; O2SAT 97
== END 2024-10-07 13:00 | disposition home or self-care (01) ==
LOC: M ED 20:06 → INTOOBSV 23:54 → M ED INP 23:54 → M MS5PR 09-30 03:29
PROVIDERS: ADMIT Family Medicine; ATTEND Internal Medicine
DX: R53.1 Weakness (principal); M54.9 Dorsalgia, unspecified; G89.29 Other chronic pain; Z91.81 History of falling; D72.829 Elevated white blood cell count, unspecified; M48.061 Spinal stenosis, lumbar region without neurogenic claudication; E87.1 Hypo-osmolality and hyponatremia; F03.90 Unspecified dementia, unspecified severity, without behavioral disturbance, psychotic disturbance, mood disturbance, and anxiety; J45.909 Unspecified asthma, uncomplicated; Z87.440 Personal history of urinary (tract) infections; Z86.19 Personal history of other infectious and parasitic diseases; N13.9 Obstructive and reflux uropathy, unspecified; Z96.0 Presence of urogenital implants; I65.03 Occlusion and stenosis of bilateral vertebral arteries; I77.1 Stricture of artery; E03.9 Hypothyroidism, unspecified; F32.A Depression, unspecified; N32.81 Overactive bladder; M19.90 Unspecified osteoarthritis, unspecified site; K58.9 Irritable bowel syndrome, unspecified; G62.9 Polyneuropathy, unspecified; I50.9 Heart failure, unspecified; I25.2 Old myocardial infarction; E55.9 Vitamin D deficiency, unspecified; K21.9 Gastro-esophageal reflux disease without esophagitis; R91.8 Other nonspecific abnormal finding of lung field; Z96.643 Presence of artificial hip joint, bilateral; Z90.79 Acquired absence of other genital organ(s); Z98.41 Cataract extraction status, right eye; Z98.42 Cataract extraction status, left eye; Z98.890 Other specified postprocedural states; Z88.2 Allergy status to sulfonamides; Z88.0 Allergy status to penicillin; Z88.8 Allergy status to other drugs, medicaments and biological substances; Z79.899 Other long term (current) drug therapy; Z79.890 Hormone replacement therapy; Z66 Do not resuscitate
CPT/HCPCS: 36415; 80048; 85025; 85049; 85055; 97116; 97161; 97530; 97535; G0378

== ENCOUNTER → 2024-11-20 | Outpatient (CLI) | payer MEDICARE ==
[~2024-11-20] MED LIST changes: +SENN-225 PO; -SENO8.6T5 PO
== END ==
LOC: M RAD 13:02
PROVIDERS: ATTEND Student in an Organized Health Care Education/Training Program
DX: S52.614A Nondisplaced fracture of right ulna styloid process, initial encounter for closed fracture (principal); S52.531A Colles' fracture of right radius, initial encounter for closed fracture; M81.0 Age-related osteoporosis without current pathological fracture; Y93.9 Activity, unspecified; Y92.9 Unspecified place or not applicable

== ENCOUNTER 2024-11-21 09:31 | Observation (INO) | payer MEDICARE, OTHER ==
[~2024-11-21] VITALS: Ht 162.6 cm; Wt 49.2 kg
[2024-11-21] MEDS ORDERED: HOME MED LIST COMPLETE! XX SCH (09:55)
[2024-11-21 10:12] LABS: INR 1.19
[2024-11-21] MEDS ORDERED: ISOVUE-370 76% 100 ML VIAL As Ordered ONE (10:15)
[2024-11-21 10:21] LABS: ALT/SGPT 11 U/L (7.0-40); AST/SGOT 32 U/L (<34)
[2024-11-21 10:22] LABS: PLATELET COUNT, AUTOMATED 56 10^3/uL (150-450)
[2024-11-21 10:34] LABS: OSMOLALITY SERUM 275 MOSM/KG (280-301)
[2024-11-21 10:38] LABS: CALCIUM LEVEL 8.5 MG/DL (8.3-10.6); CARBON DIOXIDE LEVEL 26 MMOL/L (20-31); CHLORIDE LEVEL 98 MMOL/L (98-107); CREATININE FOR GFR 0.44 MG/DL (0.55-1.30); GLOMERULAR FILTRATION RATE > 90.0 (>32); POTASSIUM SERUM 3.6 MMOL/L (3.5-5.1); SODIUM LEVEL 135 MMOL/L (136-145)
[2024-11-21 10:42] LABS: CPK CREATINE PHOSPHOKINASE 296 U/L (34-145)
[2024-11-21 10:52] LABS: VENOUS BASE EXCESS -0.3 (-2.0-2.0); VENOUS HCO3 25.1 MMOL/L (23.0-27.0); VENOUS O2 SATURATION 77.3 % (60.0-80.0); VENOUS PARTIAL PRESSURE CO2 44.1 mmHg (38.0-50.0); VENOUS PARTIAL PRESSURE O2 45.6 mmHg (30.0-50.0); VENOUS PH 7.373 UNITS (7.330-7.430); VENOUS STANDARD HCO3 23.8 MMOL/L; VENOUS TOTAL CO2 26.4 MMOL/L (24.0-28.0)
[2024-11-21] MEDS: NS (Normal Saline) 0.9% 1,000 ML IV SCH (11:09)
[2024-11-21 11:23] LABS: ATYPICAL LYMPH 6 % (0-5); LYMPHOCYTES 4 % (16-44); MONOCYTES 29 % (0-5); NEUTROPHILS 58 % (28-66); PLATELET ESTIMATE DECREASED (NORMAL)
[2024-11-21 12:02] LABS: KETONE, URINE AUTO RFX TRACE mg/dL (NEGATIVE); MUCUS, URINE RFX MODERATE (NEGATIVE); RBC, URINE AUTO RFX 38 /HPF (0-3); SQUAM EPITHELIAL CELL UR AURFX 0 /HPF (0-6)
[2024-11-21 12:04] LABS: LEUKOCYTE ESTERASE UR AUTO RFX 3+ (NEGATIVE); NITRITE, URINE AUTO RFX POSITIVE (NEGATIVE); WBC, URINE AUTO RFX 103 /HPF (0-3)
[2024-11-21 12:28] LABS: METHADONE URINE NEGATIVE (NEGATIVE)
[2024-11-21 12:29] LABS: AMPHETAMINES LEVEL URINE NEGATIVE (NEGATIVE); BARBITURATES URINE NEGATIVE (NEGATIVE); BENZODIAZEPINES URINE NEGATIVE (NEGATIVE); CANNABINOIDS URINE NEGATIVE (NEGATIVE); COCAINE METABOLITE URINE NEGATIVE (NEGATIVE); OPIATES URINE NEGATIVE (NEGATIVE); PHENCYCLIDINE URINE NEGATIVE (NEGATIVE)
[2024-11-21] MEDS: cefTRIAXone SOD 1 GM in DEXTROSE 5% (D5W) ADV/MINI-BAG 50 ML IV SCH (19:24)
[2024-11-21 20:40] VITALS: BP 123/81; TEMP 97.9; O2SAT 98
[2024-11-21] MEDS: QUEtiapine FUMARATE 12.5 MG HALF-TAB PO SCH (21:00)
[2024-11-22 03:46] VITALS: BP 109/61; TEMP 97.7; O2SAT 97
[2024-11-22] MEDS: LEVOTHYROXINE 75 MCG TABLET (0.075 MG) PO SCH (06:24)
[2024-11-22 06:43] LABS: BASO # 0.0 10^3/uL (0.0-0.2); BASO % 0.3 % (0.0-1.0); EOS # 0.1 10^3/uL (0.0-0.5); EOS % 1.0 % (0.0-3.0); LYMPH # 0.8 10^3/uL (1.5-5.0); LYMPH % 8.7 % (24.0-44.0); MONO % 34.3 % (2.0-8.0); NEUTROPHILS # 5.2 10^3/uL (1.5-8.5); NEUTROPHILS % 55.4 % (36.0-66.0)
[2024-11-22 06:46] LABS: MONO # 3.2 10^3/uL (0.0-0.8)
[2024-11-22 06:47] LABS: PLATELET COUNT, AUTOMATED 48 10^3/uL (150-450)
[2024-11-22 07:02] LABS: CALCIUM LEVEL 8.4 MG/DL (8.3-10.6); CARBON DIOXIDE LEVEL 23 MMOL/L (20-31); CHLORIDE LEVEL 100 MMOL/L (98-107); CREATININE FOR GFR 0.43 MG/DL (0.55-1.30); GLOMERULAR FILTRATION RATE > 90.0 (>32); POTASSIUM SERUM 3.2 MMOL/L (3.5-5.1); SODIUM LEVEL 137 MMOL/L (136-145)
[2024-11-22] MEDS: FOLIC ACID 1 MG TAB PO SCH (08:05)
[2024-11-22] MEDS ORDERED: GLUCOSE 4 GM CHEW PO PRN (08:10)
[2024-11-22] MEDS ORDERED: GLUCAGON INJ 1 MG VIAL SC PRN (08:10)
[2024-11-22] MEDS ORDERED: DEXTROSE 50% 50 ML SYRINGE IV PRN (08:10)
[2024-11-22] MEDS: POTASSIUM CHLORIDE 10MEQ SR TABLET PO SCH (08:25)
[2024-11-22] MEDS: ACETAMINOPHEN 325 MG TAB PO PRN (10:39)
[2024-11-22 12:00] VITALS: BP 135/80; TEMP 97.7; O2SAT 95
[2024-11-22 21:03] VITALS: BP 90/54; TEMP 98.2; O2SAT 95
[2024-11-22 21:30] VITALS: TEMP 100
[2024-11-22] MEDS: ACETAMINOPHEN *IV* 500 MG in IV 1 EA IV ONE (22:11)
[2024-11-22 22:26] LABS: BASO # 0.0 10^3/uL (0.0-0.2); BASO % 0.2 % (0.0-1.0); EOS # 0.0 10^3/uL (0.0-0.5); EOS % 0.3 % (0.0-3.0); LYMPH # 0.9 10^3/uL (1.5-5.0); LYMPH % 8.2 % (24.0-44.0); MONO % 34.6 % (2.0-8.0); NEUTROPHILS # 6.4 10^3/uL (1.5-8.5); NEUTROPHILS % 56.2 % (36.0-66.0)
[2024-11-22 22:29] VITALS: BP 102/60; O2SAT 95
[2024-11-22 22:30] LABS: PLATELET COUNT, AUTOMATED 48 10^3/uL (150-450)
[2024-11-22 22:31] LABS: MONO # 3.9 10^3/uL (0.0-0.8)
[2024-11-22] MEDS: NALOXONE INJ 0.4 MG/1 ML VIAL IV PRN (22:35)
[2024-11-22 22:46] LABS: CK-MB VALUE MASS 2.9 NG/ML (<3.6); D-DIMER QUANT 0.6 ug/mL (<0.5); INR 1.05
[2024-11-22 22:55] LABS: ALT/SGPT 10.0 U/L (7.0-40); AST/SGOT 17.0 U/L (<34); CALCIUM LEVEL 8.3 MG/DL (8.3-10.6); CARBON DIOXIDE LEVEL 26.0 MMOL/L (20-31); CHLORIDE LEVEL 100.0 MMOL/L (98-107); CPK CREATINE PHOSPHOKINASE 73.0 U/L (34-145); CREATININE FOR GFR 0.6 MG/DL (0.55-1.30); GLOMERULAR FILTRATION RATE 85.8 (>32); MAGNESIUM LEVEL 1.7 MG/DL (1.8-2.4); MB/CK RELATIVE INDEX 3.97 (< OR =4); PHOSPHORUS LEVEL 2.5 MG/DL (2.4-5.1); POTASSIUM SERUM 3.6 MMOL/L (3.5-5.1); SODIUM LEVEL 135.0 MMOL/L (136-145)
[2024-11-22] MEDS: LR 1,000 ML IV SCH (23:20)
[2024-11-23 01:59] LABS: CK-MB VALUE MASS 1.9 NG/ML (<3.6)
[2024-11-23 02:00] LABS: CPK CREATINE PHOSPHOKINASE 52.0 U/L (34-145); MB/CK RELATIVE INDEX 3.65 (< OR =4)
[2024-11-23 04:26] VITALS: BP 96/52; TEMP 99.1; O2SAT 95
[2024-11-23 06:41] LABS: BASO # 0.0 10^3/uL (0.0-0.2); BASO % 0.3 % (0.0-1.0); EOS # 0.1 10^3/uL (0.0-0.5); EOS % 1.0 % (0.0-3.0); LYMPH # 1.1 10^3/uL (1.5-5.0); LYMPH % 16.2 % (24.0-44.0); MONO # 1.8 10^3/uL (0.0-0.8); MONO % 26.4 % (2.0-8.0); NEUTROPHILS # 3.8 10^3/uL (1.5-8.5); NEUTROPHILS % 55.7 % (36.0-66.0)
[2024-11-23 06:42] LABS: PLATELET COUNT, AUTOMATED 51 10^3/uL (150-450)
[2024-11-23 06:55] LABS: CALCIUM LEVEL 8.1 MG/DL (8.3-10.6); CARBON DIOXIDE LEVEL 27 MMOL/L (20-31); CHLORIDE LEVEL 102 MMOL/L (98-107); CREATININE FOR GFR 0.44 MG/DL (0.55-1.30); GLOMERULAR FILTRATION RATE > 90.0 (>32); POTASSIUM SERUM 3.5 MMOL/L (3.5-5.1); SODIUM LEVEL 138 MMOL/L (136-145)
[2024-11-23] MEDS ORDERED: PILL CUTTER 1 EACH XX PRN (08:45)
[2024-11-23 12:00] VITALS: BP 98/68; TEMP 97.9; O2SAT 96
[2024-11-23] MEDS: QUEtiapine FUMARATE 12.5 MG HALF-TAB PO PRN (21:08)
[2024-11-23 21:28] VITALS: BP 106/60; TEMP 98.1; O2SAT 96
[2024-11-24 05:19] VITALS: BP 134/64; TEMP 97.5; O2SAT 95
[2024-11-24 06:15] LABS: BASO # 0.0 10^3/uL (0.0-0.2); BASO % 0.5 % (0.0-1.0); EOS # 0.1 10^3/uL (0.0-0.5); EOS % 1.4 % (0.0-3.0); LYMPH # 1.1 10^3/uL (1.5-5.0); LYMPH % 14.3 % (24.0-44.0); MONO # 1.9 10^3/uL (0.0-0.8); MONO % 24.7 % (2.0-8.0); NEUTROPHILS # 4.6 10^3/uL (1.5-8.5); NEUTROPHILS % 58.6 % (36.0-66.0)
[2024-11-24 06:16] LABS: PLATELET COUNT, AUTOMATED 51 10^3/uL (150-450)
[2024-11-24 06:47] LABS: CALCIUM LEVEL 8.8 MG/DL (8.3-10.6); CARBON DIOXIDE LEVEL 29 MMOL/L (20-31); CHLORIDE LEVEL 101 MMOL/L (98-107); CREATININE FOR GFR 0.37 MG/DL (0.55-1.30); GLOMERULAR FILTRATION RATE > 90.0 (>32); POTASSIUM SERUM 3.6 MMOL/L (3.5-5.1); SODIUM LEVEL 141 MMOL/L (136-145)
[2024-11-24] MEDS: POTASSIUM CHLORIDE 10MEQ SR TABLET PO SCH (08:57)
[2024-11-24] MEDS ORDERED: CEFDINIR 300 MG CAP PO SCH (09:00)
[2024-11-24 12:00] VITALS: BP 122/72; TEMP 97.9; O2SAT 94
[2024-11-24] MEDS: QUEtiapine FUMARATE 12.5 MG HALF-TAB PO PRN (15:42)
[2024-11-24 20:25] VITALS: BP 128/68; TEMP 98; O2SAT 96
[2024-11-25 05:13] VITALS: BP 121/59; TEMP 97.9; O2SAT 96
[2024-11-25 06:37] LABS: PLATELET COUNT, AUTOMATED 61 10^3/uL (150-450)
[2024-11-25 06:59] LABS: BASOPHILS 1 % (0-1); CALCIUM LEVEL 8.8 MG/DL (8.3-10.6); CARBON DIOXIDE LEVEL 29 MMOL/L (20-31); CHLORIDE LEVEL 100 MMOL/L (98-107); CREATININE FOR GFR 0.36 MG/DL (0.55-1.30); EOSINOPHILS 1 % (0-3); GLOMERULAR FILTRATION RATE > 90.0 (>32); LYMPHOCYTES 13 % (16-44); MONOCYTES 30 % (0-5); NEUTROPHILS 55 % (28-66); POTASSIUM SERUM 3.9 MMOL/L (3.5-5.1); SODIUM LEVEL 139 MMOL/L (136-145)
[2024-11-25 07:00] LABS: PLATELET ESTIMATE DECREASED (NORMAL)
[2024-11-25] MEDS ORDERED: LEVO75TAB PO (11:50)
[2024-11-25] MEDS ORDERED: QUET1TAB17 PO (11:50)
[2024-11-25 12:00] VITALS: BP 122/76; TEMP 98.6; O2SAT 96
[2024-11-25 20:37] VITALS: BP 114/63; TEMP 98.1; O2SAT 94
[2024-11-26 04:09] VITALS: BP 137/75; TEMP 97.9; O2SAT 96
[2024-11-26 06:55] LABS: BASO # 0.0 10^3/uL (0.0-0.2); BASO % 0.8 % (0.0-1.0); EOS # 0.1 10^3/uL (0.0-0.5); EOS % 2.0 % (0.0-3.0); LYMPH # 0.9 10^3/uL (1.5-5.0); LYMPH % 17.8 % (24.0-44.0); MONO # 1.4 10^3/uL (0.0-0.8); MONO % 28.4 % (2.0-8.0); NEUTROPHILS # 2.5 10^3/uL (1.5-8.5); NEUTROPHILS % 50.6 % (36.0-66.0)
[2024-11-26 07:06] LABS: PLATELET COUNT, AUTOMATED 69 10^3/uL (150-450)
[2024-11-26 07:16] LABS: CALCIUM LEVEL 8.3 MG/DL (8.3-10.6); CARBON DIOXIDE LEVEL 28 MMOL/L (20-31); CHLORIDE LEVEL 101 MMOL/L (98-107); CREATININE FOR GFR 0.41 MG/DL (0.55-1.30); GLOMERULAR FILTRATION RATE > 90.0 (>32); POTASSIUM SERUM 4.2 MMOL/L (3.5-5.1); SODIUM LEVEL 138 MMOL/L (136-145)
== END 2024-11-26 10:22 | disposition home health service (06) ==
LOC: EDBD 09:31 → M ED 09:31 → M ED INP 09:32 → M MSPAV 20:37
PROVIDERS: ADMIT Internal Medicine Nephrology; ATTEND Internal Medicine Nephrology
DX: S52.571A Other intraarticular fracture of lower end of right radius, initial encounter for closed fracture (principal); S52.601A Unspecified fracture of lower end of right ulna, initial encounter for closed fracture; S00.83XA Contusion of other part of head, initial encounter; S00.11XA Contusion of right eyelid and periocular area, initial encounter; W17.89XA Other fall from one level to another, initial encounter; Y92.008 Other place in unspecified non-institutional (private) residence as the place of occurrence of the external cause; F03.90 Unspecified dementia, unspecified severity, without behavioral disturbance, psychotic disturbance, mood disturbance, and anxiety; S32.89XD Fracture of other parts of pelvis, subsequent encounter for fracture with routine healing; X58.XXXD Exposure to other specified factors, subsequent encounter; S42.254D Nondisplaced fracture of greater tuberosity of right humerus, subsequent encounter for fracture with routine healing; N39.0 Urinary tract infection, site not specified; B96.20 Unspecified Escherichia coli [E. coli] as the cause of diseases classified elsewhere; R26.89 Other abnormalities of gait and mobility; R29.6 Repeated falls; Z96.643 Presence of artificial hip joint, bilateral; D72.829 Elevated white blood cell count, unspecified; D69.6 Thrombocytopenia, unspecified; E03.9 Hypothyroidism, unspecified; E78.5 Hyperlipidemia, unspecified; K21.9 Gastro-esophageal reflux disease without esophagitis; N32.81 Overactive bladder; K58.9 Irritable bowel syndrome, unspecified; E46 Unspecified protein-calorie malnutrition; G31.1 Senile degeneration of brain, not elsewhere classified; I67.82 Cerebral ischemia; R41.82 Altered mental status, unspecified; Z91.040 Latex allergy status; Z88.2 Allergy status to sulfonamides; Z88.0 Allergy status to penicillin; Z88.8 Allergy status to other drugs, medicaments and biological substances; Z90.79 Acquired absence of other genital organ(s); Z96.0 Presence of urogenital implants; Z82.49 Family history of ischemic heart disease and other diseases of the circulatory system; Z83.3 Family history of diabetes mellitus; Z83.2 Family history of diseases of the blood and blood-forming organs and certain disorders involving the immune mechanism; Z79.899 Other long term (current) drug therapy; Z79.890 Hormone replacement therapy
CPT/HCPCS: 36415; 70450; 70486; 71045; 71275; 72125; 73100; 73110; 73502; 74177; 80047; 80048; 80076; 80307; 81001; 82140; 82550; 82553; 82803; 83605; 83735; 83880; 83930; 84100; 84443; 84484; 85025; 85049; 85055; 85379; 85610; 85730; 86850; 87040; 87088; 87186; 93005; 93041; 94760; 96361; 96365; 96366; 96367; 96375; 96376; 97116; 97161; 97165; 97530; 97535; 99285; G0378; J0136; J0696; J2312; Q9967

== ENCOUNTER → 2024-12-01 | Outpatient (CLI) | payer MEDICARE ==
[~2024-12-01] MED LIST changes: +LEVO75TAB PO; +QUET1TAB17 PO
[2024-12-01 17:57] LABS: PLATELET COUNT, AUTOMATED 106 10^3/uL (150-450)
[2024-12-01 18:18] LABS: ALT/SGPT 13.0 U/L (7.0-40); AST/SGOT 17.0 U/L (<34); CALCIUM LEVEL 8.7 MG/DL (8.3-10.6); CARBON DIOXIDE LEVEL 28.0 MMOL/L (20-31); CHLORIDE LEVEL 97.0 MMOL/L (98-107); CREATININE FOR GFR 0.5 MG/DL (0.55-1.30); GLOMERULAR FILTRATION RATE 89.6 (>32); POTASSIUM SERUM 4.0 MMOL/L (3.5-5.1); SODIUM LEVEL 135.0 MMOL/L (136-145)
== END ==
LOC: M PLALAB 14:30
PROVIDERS: ATTEND Urology
DX: N13.5 Crossing vessel and stricture of ureter without hydronephrosis (principal)

== ENCOUNTER 2024-12-07 11:01 | Emergency (ER) | payer MEDICARE ==
[~2024-12-07] VITALS: Ht 162.6 cm; Wt 50.1 kg
[2024-12-07 11:12] VITALS: TEMP 96.4
[2024-12-07 12:35] LABS: PLATELET COUNT, AUTOMATED 72 10^3/uL (150-450)
[2024-12-07 12:49] LABS: ALT/SGPT 10 U/L (7.0-40); AST/SGOT 19 U/L (<34); CALCIUM LEVEL 8.4 MG/DL (8.3-10.6); CARBON DIOXIDE LEVEL 27 MMOL/L (20-31); CHLORIDE LEVEL 99 MMOL/L (98-107); CREATININE FOR GFR 0.44 MG/DL (0.55-1.30); GLOMERULAR FILTRATION RATE > 90.0 (>32); POTASSIUM SERUM 3.8 MMOL/L (3.5-5.1); SODIUM LEVEL 137 MMOL/L (136-145)
[2024-12-07] MEDS ORDERED: QUET1TAB17 PO (13:29)
[2024-12-07] MEDS ORDERED: ACET1TAB55 PO (13:29)
[2024-12-07] MEDS ORDERED: HOME MED LIST COMPLETE! XX SCH (13:30)
[2024-12-07 13:39] LABS: ATYPICAL LYMPH 11 % (0-5); LYMPHOCYTES 7 % (16-44); METAMYELOCYTES 1 % (0-0); MONOCYTES 11 % (0-5); NEUTROPHILS 70 % (28-66); PLATELET ESTIMATE DECREASED (NORMAL)
[2024-12-07] MEDS: NS 500 ML IV ONE (15:10)
[2024-12-07 18:18] LABS: KETONE, URINE AUTO RFX TRACE mg/dL (NEGATIVE); LEUKOCYTE ESTERASE UR AUTO RFX 3+ (NEGATIVE); NITRITE, URINE AUTO RFX NEGATIVE (NEGATIVE); RBC, URINE AUTO RFX TNTC /HPF (0-3); SQUAM EPITHELIAL CELL UR AURFX 3 /HPF (0-6); WBC, URINE AUTO RFX 6 /HPF (0-3)
[2024-12-07] MEDS: CEFDINIR 300 MG CAP PO ONE (18:53)
[2024-12-07] MEDS ORDERED: CEFD1CAP9 PO (19:13)
[2024-12-07 19:30] VITALS: BP 138/65
[2024-12-07 19:31] VITALS: O2SAT 98
[2024-12-11] MEDS ORDERED: LEVO1TAB40 PO (15:54)
== END 2024-12-07 20:07 | disposition home or self-care (01) ==
LOC: M ED 11:01
DX: N39.0 Urinary tract infection, site not specified (principal); I45.81 Long QT syndrome; I45.10 Unspecified right bundle-branch block; I44.4 Left anterior fascicular block; J45.909 Unspecified asthma, uncomplicated; F41.9 Anxiety disorder, unspecified; F32.A Depression, unspecified; Z88.1 Allergy status to other antibiotic agents; Z88.2 Allergy status to sulfonamides; Z88.8 Allergy status to other drugs, medicaments and biological substances; Z91.040 Latex allergy status; Z79.1 Long term (current) use of non-steroidal anti-inflammatories (NSAID); Z79.2 Long term (current) use of antibiotics; Z79.899 Other long term (current) drug therapy

== ENCOUNTER → 2024-12-09 | Outpatient (CLI) | payer MEDICARE ==
[~2024-12-09] MED LIST changes: +ACET1TAB55 PO
[2024-12-09 14:58] LABS: BASO # 0.0 10^3/uL (0.0-0.2); BASO % 0.4 % (0.0-1.0); EOS # 0.1 10^3/uL (0.0-0.5); EOS % 1.2 % (0.0-3.0); LYMPH # 0.9 10^3/uL (1.5-5.0); LYMPH % 10.5 % (24.0-44.0); MONO % 38.5 % (2.0-8.0); NEUTROPHILS # 4.0 10^3/uL (1.5-8.5); NEUTROPHILS % 48.9 % (36.0-66.0)
[2024-12-09 15:04] LABS: ALT/SGPT 9 U/L (7.0-40); AST/SGOT 16 U/L (<34); CALCIUM LEVEL 8.3 MG/DL (8.3-10.6); CARBON DIOXIDE LEVEL 27 MMOL/L (20-31); CHLORIDE LEVEL 101 MMOL/L (98-107); CREATININE FOR GFR 0.44 MG/DL (0.55-1.30); GLOMERULAR FILTRATION RATE > 90.0 (>32); IRON (FE) 32 UG/DL (50-170); MAGNESIUM LEVEL 2.0 MG/DL (1.8-2.4); PERCENT SATURATION 12.1 % (13.2-45.0); POTASSIUM SERUM 3.6 MMOL/L (3.5-5.1); SODIUM LEVEL 137 MMOL/L (136-145); VITAMIN B12 LEVEL 327 PG/ML (211-911)
[2024-12-09 15:11] LABS: INR 0.97
[2024-12-09 15:35] LABS: MONO # 3.1 10^3/uL (0.0-0.8); PLATELET COUNT, AUTOMATED 59 10^3/uL (150-450)
[2024-12-11 01:28] LABS: PROTEIN, TOTAL SO 6.1 g/dL (6.1-8.1)
== END ==
LOC: M PLALAB 11:53
PROVIDERS: ATTEND Family Medicine
DX: Z01.818 Encounter for other preprocedural examination (principal); D69.6 Thrombocytopenia, unspecified

== ENCOUNTER → 2024-12-29 | Outpatient (CLI) | payer MEDICARE ==
[~2024-12-29] MED LIST changes: +LEVO1TAB40 PO
== END ==
LOC: M SOG 10:13
PROVIDERS: ATTEND Orthopaedic Surgery
DX: M25.531 Pain in right wrist (principal)

== ENCOUNTER → 2025-01-09 | Outpatient (REF) | PROVIDERS: ATTEND Physician Assistant | DX: E03.9 Hypothyroidism, unspecified (principal); Z53.8 Procedure and treatment not carried out for other reasons ==

== ENCOUNTER → 2025-01-12 | Outpatient (CLI) | payer MEDICARE | LOC: M SOG 07:23 | PROVIDERS: ATTEND Orthopaedic Surgery | DX: S52.501P Unspecified fracture of the lower end of right radius, subsequent encounter for closed fracture with malunion (principal) ==

== ENCOUNTER 2025-01-25 06:30 | Emergency (ER) | payer MEDICARE ==
[~2025-01-25] VITALS: Ht 162.6 cm; Wt 45.8 kg
[~2025-01-25 06:30] MED LIST changes: -BISA10SU4 PR; -FLEEENE12 PR; -MILKSUS3 PO
[2025-01-25] MEDS ORDERED: FLEEENE12 PR (09:40)
[2025-01-25] MEDS ORDERED: ACET1TAB55 PO (09:40)
[2025-01-25] MEDS ORDERED: BISA10SU4 PR (09:40)
[2025-01-25] MEDS ORDERED: MILKSUS3 PO (09:40)
[2025-01-25] MEDS ORDERED: HOME MED LIST COMPLETE! XX SCH (09:45)
[2025-01-25 11:30] VITALS: BP 132/58; O2SAT 90
[2025-01-25 11:57] VITALS: TEMP 97.9
== END 2025-01-25 13:47 | disposition home or self-care (01) ==
LOC: M ED 06:30
DX: S62.336A Displaced fracture of neck of fifth metacarpal bone, right hand, initial encounter for closed fracture (principal); Y92.9 Unspecified place or not applicable; Y93.9 Activity, unspecified; Y99.9 Unspecified external cause status; W19.XXXA Unspecified fall, initial encounter; K21.9 Gastro-esophageal reflux disease without esophagitis; E78.5 Hyperlipidemia, unspecified; Z88.1 Allergy status to other antibiotic agents; Z88.2 Allergy status to sulfonamides; Z88.8 Allergy status to other drugs, medicaments and biological substances; Z91.040 Latex allergy status; Z79.1 Long term (current) use of non-steroidal anti-inflammatories (NSAID); Z79.899 Other long term (current) drug therapy

== ENCOUNTER → 2025-01-25 | Outpatient (REF) | payer MEDICARE ==
[~2025-01-25] MED LIST changes: +BISA10SU4 PR; +FLEEENE12 PR; +MILKSUS3 PO
== END ==
PROVIDERS: ATTEND Internal Medicine
DX: M85.88 Other specified disorders of bone density and structure, other site (principal); Z96.642 Presence of left artificial hip joint

== ENCOUNTER → 2025-01-27 | Outpatient (CLI) | payer MEDICARE ==
[~2025-01-27] MED LIST changes: +BISA10SU4 PR; +FLEEENE12 PR; +MILKSUS3 PO
== END ==
LOC: M SOG 11:11
PROVIDERS: ATTEND Physician Assistant
DX: M79.641 Pain in right hand (principal)

== ENCOUNTER → 2025-02-02 | Outpatient (CLI) | payer MEDICARE | LOC: M SOG 07:20 | PROVIDERS: ATTEND Physician Assistant | DX: M79.641 Pain in right hand (principal); S52.501D Unspecified fracture of the lower end of right radius, subsequent encounter for closed fracture with routine healing; S52.601D Unspecified fracture of lower end of right ulna, subsequent encounter for closed fracture with routine healing; S62.306D Unspecified fracture of fifth metacarpal bone, right hand, subsequent encounter for fracture with routine healing ==

== ENCOUNTER → 2025-02-13 | Outpatient (CLI) | payer MEDICARE | LOC: M SOG 07:41 | PROVIDERS: ATTEND Physician Assistant | DX: S62.306D Unspecified fracture of fifth metacarpal bone, right hand, subsequent encounter for fracture with routine healing (principal); W18.30XA Fall on same level, unspecified, initial encounter ==

== ENCOUNTER → 2025-03-02 | Outpatient (CLI) | payer MEDICARE | LOC: M SOG 07:35 | PROVIDERS: ATTEND Physician Assistant | DX: S62.306D Unspecified fracture of fifth metacarpal bone, right hand, subsequent encounter for fracture with routine healing (principal); S52.501D Unspecified fracture of the lower end of right radius, subsequent encounter for closed fracture with routine healing; S52.611D Displaced fracture of right ulna styloid process, subsequent encounter for closed fracture with routine healing ==

== ENCOUNTER → 2025-03-15 | Outpatient (CLI) | payer MEDICARE ==
[2025-03-15 15:08] LABS: PLATELET COUNT, AUTOMATED 97 10^3/uL (150-450)
[2025-03-15 15:21] LABS: CALCIUM LEVEL 8.6 MG/DL (8.3-10.6); CARBON DIOXIDE LEVEL 32 MMOL/L (20-31); CHLORIDE LEVEL 96 MMOL/L (98-107); CREATININE FOR GFR 0.42 MG/DL (0.55-1.30); GLOMERULAR FILTRATION RATE > 90.0 (>32); POTASSIUM SERUM 3.9 MMOL/L (3.5-5.1); SODIUM LEVEL 135 MMOL/L (136-145)
== END ==
LOC: M RAD 13:41
PROVIDERS: ATTEND Internal Medicine
DX: Z01.818 Encounter for other preprocedural examination (principal); I45.2 Bifascicular block

== ENCOUNTER → 2025-03-21 | Outpatient (REF) | payer MEDICARE | PROVIDERS: ATTEND Physician Assistant | DX: R05.9 Cough, unspecified (principal) ==

== ENCOUNTER → 2025-03-29 | Outpatient (REF) | payer MEDICARE ==
[2025-03-29 13:45] LABS: APPEARANCE, URINE MANUAL TURBID (CLEAR); COLOR, URINE MANUAL BROWN (YELLOW); PH,URINE MAN 8.5 UNITS (5.0 - 7.0); SPECIFIC GRAVITY,URINE MANUAL 1.010 (1.002-1.035)
[2025-03-29 13:46] LABS: BILIRUBIN, URINE MANUAL NEGATIVE (NEGATIVE); BLOOD URINE MANUAL POSITIVE (NEGATIVE); GLUCOSE, URINE (UA) MANUAL NEGATIVE (NEGATIVE); KETONE, URINE MANUAL NEGATIVE (NEGATIVE); LEUKOCYTE ESTERASE, URINE MAN POSITIVE (NEGATIVE); NITRITE, URINE MANUAL NEGATIVE (NEGATIVE); PROTEIN, URINE MANUAL 3+ mg/dL (NEGATIVE); UROBILINOGEN, URINE MANUAL NORMAL (NORMAL)
[2025-03-29 14:08] LABS: BACTERIA, URINE LARGE AMOUNT; HYALINE CAST, URINE NONE SEEN /lpf (0-1); RBC, URINE 30-40 /hpf (0-3); SQUAMOUS EPITHELIAL CELL URINE NONE SEEN /hpf (SMALL AMT)
== END ==
PROVIDERS: ATTEND Internal Medicine
DX: Z01.812 Encounter for preprocedural laboratory examination (principal); Z79.899 Other long term (current) drug therapy

== ENCOUNTER → 2025-03-29 | Outpatient (REF) | payer MEDICARE | PROVIDERS: ATTEND Physician Assistant | DX: R05.9 Cough, unspecified (principal); I51.7 Cardiomegaly ==

== ENCOUNTER → 2025-03-29 | Outpatient (REF) | payer MEDICARE | PROVIDERS: ATTEND Physician Assistant | DX: R05.9 Cough, unspecified (principal); I51.7 Cardiomegaly; Z01.812 Encounter for preprocedural laboratory examination; Z79.899 Other long term (current) drug therapy ==